=== PATIENT | male | born 1935 | race Caucasian/White ===

== ENCOUNTER 2023-07-16 08:12 | Outpatient (CLI) | payer MEDICARE, OTHER, SELFPAY | END 2023-07-16 08:13 | disposition home or self-care (01) | LOC: AMB 08-05 15:05 | PROVIDERS: Visit Provider Family Medicine | DX: R07.89 Other chest pain (principal) | CPT/HCPCS: A0425; A0427 ==

== ENCOUNTER 2024-07-13 08:03 | Outpatient (CLI) | payer MEDICARE, OTHER, SELFPAY ==
--- OUTSIDE RECORDS SUMMARY | 2024-07-28 03:52 | XMS_ITS | Clinical Summary ---
Author Organization [facility] Address [address] [place] [address] Care Team Providers Care Habilitation Worker Name Role Phone Dionte Ferraro MD Primary Care Provider [phone]- [phone] Source Comments You are receiving this document as you are listed as the primary care provider,follow-up provider, or the patient has been referred to you for consultation.This is in compliance with the Medicare and[facility] EHR Incentive Program,which states Providers who transition their patient to another setting of careor provider of care or refers their patient to another provider of care shouldprovide summary care record for each transition of care or referral. [facility] Allergies No known active allergies Medications Medication Sig Dispensed Refills Start Date End Date Status aspirin, enteric-coated 81 MG enteric coated tablet Take 1 Tablet (81 mg) by mouth daily. Active Jefferson-3 Fatty Acids (FISH OIL) 1200 MG CPDR daily. Active cyanocobalamin (VITAMIN B12) 1000 MCG tablet Take 1.5 Tablets (1,500 mcg) by mouth daily. Active Cholecalciferol (VITAMIN D3) 50 MCG (2000 UT) TABS daily. Active Alcohol Swabs (ALCOHOL PADS) 70 % PADSIndications:Cont rolled type 2 diabetes mellitus with stage 3 chronic kidney disease, 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) Take 1 Each as instructed every other day. 100 Each 10/25/2020 Active polyethylene glycol (MIRALAX) 17 g packet Take 17 g by mouth every 24 hours as needed. 07/27/2023 Active bisacodyl (DULCOLAX) 10 MG suppository Insert 1 Suppository (10 mg) rectally every 24 hours as needed. 07/27/2023 Active methocarbamol (ROBAXIN) 750 MG tablet Take 2 Tablets (1,500 mg) by mouth 4 times daily as needed. 07/27/2023 Active gabapentin (NEURONTIN) 100 MG capsule Take 1 Capsule (100 mg) by mouth. 07/27/2023 Active dextromethorphan-gua ifenesin (ROBITUSSIN-DM) 10-100 MG/5ML syrup Take 10 mL by mouth every 4 hours as needed. 07/27/2023 Active acetaminophen 500 MG tablet Take 2 Tablets (1,000 mg) by mouth. 07/27/2023 Active benzonatate (TESSALON) 100 MG capsule Take 1 Capsule (100 mg) by mouth every 4 hours as needed. 07/27/2023 Active ONE TOUCH ULTRA 2 meterIndications:Typ e 2 diabetes mellitus with stage 3b chronic kidney disease, 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) Use to test daily. Use as directed. Pharmacy dispense brand based on insurance. 1 Each 08/03/2023 Active blood glucose (FREESTYLE LITE) test stripIndications:Con trolled type 2 diabetes mellitus with stage 3 chronic kidney disease, 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) Use 1 Each to test daily. 100 Strip 3 09/18/2023 Active lancets (ACCU-CHEK SOFTCLIX)Indications :Type 2 diabetes mellitus with stage 3b chronic kidney disease, 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) Use 1 Each to test daily. E11.22, N18.32 100 Each 3 03/13/2024 Active sodium bicarbonate 650 MG tabletIndications:Me tabolic acidosis,Stage 3b chronic kidney disease (HRC) Take 2 Tablets (1,300 mg) by mouth two times a day. 360 Tablet 3 06/08/2024 Active calcitriol (ROCALTROL) 0.25 MCG capsule Take 1 Capsule (0.25 mcg) by mouth daily. 90 Capsule 3 06/08/2024 Active allopurinol (ZYLOPRIM) 100 MG tabletIndications:Hy peruricemia Take 1 Tablet (100 mg) by mouth daily. 90 Tablet 3 06/20/2024 Active amLODIPine (NORVASC) 10 MG tabletIndications:Es sential hypertension (HRC) Take 1 Tablet (10 mg) by mouth daily. 90 Tablet 3 06/20/2024 Active finasteride (PROSCAR) 5 MG tabletIndications:BP H with obstruction/lower urinary tract symptoms Take 1 Tablet (5 mg) by mouth daily. 90 Tablet 3 06/20/2024 Active ramipril (ALTACE) 10 MG capsuleIndications:T ype 2 diabetes mellitus with stage 3b chronic kidney disease, 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),Essential hypertension (HRC) Take 1 Capsule (10 mg) by mouth two times a day. 180 Capsule 3 06/20/2024 Active atorvastatin (LIPITOR) 40 MG tabletIndications:Mi xed hyperlipidemia (HRC) Take 1 Tablet (40 mg) by mouth daily. 90 Tablet 3 06/20/2024 Active carvedilol (COREG) 6.25 MG tabletIndications:Es sential hypertension (HRC) Take 1 Tablet (6.25 mg) by mouth two times a day with meals. 180 Tablet 06/20/2024 Active empagliflozin (JARDIANCE) 10 MG tabletIndications:Ty pe 2 diabetes mellitus with stage 3b chronic kidney disease, 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),Stage 3b chronic kidney disease (HRC),Essential hypertension (HRC) Take 1 Tablet (10 mg) by mouth daily. 90 Tablet 3 06/20/2024 Active hydrALAZINE (APRESOLINE) 50 MG tabletIndications:Es sential hypertension (HRC) Take 1.5 Tablets (75 mg) by mouth three times a day. 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 08/15/2020 Essential hypertension 08/15/2020 Mixed hyperlipidemia 08/15/2020 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 Hyperuricemia 08/15/2020 S/P AVR 08/15/2020 DNR (do not resuscitate) 08/15/2020 History of CVA with residual deficit 08/15/2020 Overview (08/15/2020): Dysarthria/balance Presence of prosthetic heart valve 08/15/2020 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 20 Overview (04/02/2023): Dysarthria/balance Resolved Problems Problem Noted Date Diagnosed Date Resolved Date Cerebrovascular accident (CV A) due to thrombosis of left middle cerebral artery 08/15/2020 08/15/2020 Parkinson's disease 08/15/2020 08/16/20 20 Encounters Date Type Department Care Team Description 06/20/2024 3:00 PM CDT Lab Visit [facility] [address] [place] [address] Type 2 diabetes mellitus with stage 3b chronic kidney disease, 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); Hyperuricemia; Mixed hyperlipidemia 06/20/2024 10:30 AM CDT Office Visit [facility] [id number] [place] [address] Dionte Ferraro MD Encounter for Medicare annual wellness exam (Primary Dx); Type 2 diabetes mellitus with stage 3b chronic kidney disease, 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); Stage 3b chronic kidney disease (HRC); Essential hypertension (HRC); Mixed hyperlipidemia; BPH with obstruction/lower urinary tract symptoms; Hyperuricemia; Weakness of both lower extremities; Chronic bilateral low back pain without sciatica 06/14/2024 E-Visit [facility] [id number] [place] [address] Mirta Santillan, ORGAN RECOVERY COORDINATOR, HELP DESK SUPPORT 06/08/2024 3:50 PM CDT Lab Visit [facility] [address] [place] [address] Metabolic acidosis; Stage 3b chronic kidney disease (HRC) 06/08/2024 3:00 PM CDT Office Visit [facility] [address] [place] [address] Mirta Santillan APRN, CNP Stage 3b chronic kidney disease (HRC) (Primary Dx); Metabolic acidosis; Type 2 diabetes mellitus with stage 3b chronic kidney disease, 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); 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 (HRC); Essential hypertension (C) 06/05/[address] [address] Dionte Ferraro MD Refill (ramipril (ALTACE) 10 MG capsule [Pharmacy Med Name: RAMIPRIL CAPS 10MG]) 05/15/[address] [address] Dionte Ferraro MD Reschedule Appointment 05/02/[address] [address] Dionte Ferraro MD Refill (amLODIPine (NORVASC) 10 MG tablet [Pharmacy Med Name: AMLODIPINE BESYLATE TABS 10MG]) from Last 3 Months Immunizations Name Administration Dates Next Due Flu Vac Preserv Free (3+yrs) 08/08/2016 Influenza IIV4 (Quadrivalent ) Fluad, 65+ Yrs 08/03/2023,09/25/2022,11/07/2021,2019 Influenza aIIV3 65+ Years (Fluad) 08/16/2013 Influenza, Unspecified Formulation 07/24,08/08/2017,09/08/2015,2013,08/08/2013,09/23/2011,08/08/2011,0 08/07/2010,07/09/2010,08/27/2009, 008,09/07/2007,09/08/2006 Moderna Monovalent 12+ 05/21/2022,2020,12/24/2020,2020 PCV13 (Prevnar) 11/08/2013 PCV20 (Tkmoxrc93) 04/13/2022 PPSV23 (Pneumovax) 08/16/2013 Pfizer Bivalent 12+ 09/25/2022 Pfizer COVID-19 12+ 09/22/2023 Pneumococcal, Unspecified Formulation 08/08/2010 ,07/09/2010,12/03/2003 Td (7+ yrs) 02/07/2012,11/08/2007 Tdap 09/22/2023,09/23/2011 Zoster (Zostavax) 06/08/2013,11/14/2008 Family History Medical History Relation Name Comments Cataract Other daughter Relation Name Status Comments Other daughter Alive Social History Tobacco Use Types Packs/Day Years Used Date Smoking Tobacco: Former Cigarettes 0.3 7 1 - 08/15/1980 Smokeless Tobacco: Never Tobacco Cessation:Counseling Given: Not Answered Alcohol Use Standard Drinks/Week Comments Not Currently 0 (1 standard drink = 0.6 oz pur e alcohol) occasional PHQ-2 Answer Date Recorded PHQ-2 Score 0 06/20/2024 Sex and Gender Information Value Date Recorded Sex Assigned at Not on file Gender Identity Not on file Sexual Orientation Not on file Last Filed Vital Signs Vital Sign Reading Time Taken Comments Blood Pressure 149/57 06/20/2024 10:12 AM CDT Pt refused auto avg Pulse 58 06/20/2024 10:12 AM CDT Temperature - - Respiratory Rate 14 08/16/2020 10:5 4 AM CDT Oxygen Saturation 100% 08/19/2020 10: 05 AM CDT Inhaled Oxygen Concentration - - Weight 92.3 kg (203 lb 8 oz) 06/20/2024 10:12 AM CDT Height 170.8 cm (5' 7.25) 06/20/2024 1 0:12 AM CDT Body Mass Index 31.64 06/20/2024 10:12 AM CDT Plan of Treatment Health Maintenance Due Date Last Done Comments RSV (1 - 1-dose 75+ series) 2011 Zoster/Shingles (2 of 3) 08/03/2013 06/08/2013, 05/2009 COVID-19 Vaccine ( season) 2024 09/22/2023, 09/25/2022, 05/21/2022, Additional history exists Influenza (#1) 2024 08/03/2023, 09/08, 11/07/2021, Additional history exists Diabetes: HGBA1C 09/20/2024 06/20/2024, 06/2023, 07/16/2023, Additional history exists Diabetes: Eye Exam 05/08/2025 05/08/2024 (C ompleted), 11/26/2020 Diabetes: Creatinine 06/08/2025 06/08/2024, 01/15/2023, 06/05/2022, Additional history exists Diabetes: Foot Exam 06/20/2025 06/20/2024, Medicare Annual Wellness Visit 06/20/2025 06/20/2024, 04/02/2023, 11/17/2021, Additional history exists Diabetes: Lipid Panel 06/20/2029 06/20/2024 , 04/02/2023, 05/01/2022, Additional history exists DTaP/Tdap/Td (4 - Tdap) 09/22/2033 09/22/20 23, 02/07/2012, 09/23/2011, Additional history exists Pneumococcal 65+ Yrs Completed 04/13/2022, 11/08/2013, 08/16/2013, Additional history exists HepA Aged Out No longer eligi ble based on patient's age to complete this topic HepB Aged Out No longer eligi ble based on patient's age to complete this topic Hib Aged Out No longer eligi ble based on patient's age to complete this topic IPV (Polio) Aged Out No longer eligi ble based on patient's age to complete this topic MCV4 Aged Out No longer eligi ble based on patient's age to complete this topic Procedures Procedure Name Priority Date/Time Associated Diagnosis Comments URIC ACID Routine 06/20/2024 11:21 AM CDT Hyperuricemia LDL CHOLESTEROL, DIRECT MEASURED Routine 06/20/2024 11:21 AM CDT Mixed hyperlipidemia ALT (SGPT) Routine 06/20/2024 11:21 AM CDT Hyperuricemia HGB A1C Routine 06/20/2024 11:21 AM CDT Type 2 diabetes mellitus with stage 3b chronic kidney disease, 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) COMPLETE BLOOD COUNT-W/DIFF Routine 06/08/2024 3:35 PM CDT Metabolic acidosis Stage 3b chronic kidney disease (HRC) INTACT PTH Routine 06/08/2024 3:35 PM CDT Metabolic acidosis Stage 3b chronic kidney disease (HRC) CBC AND DIFFERENTIAL PANEL Routine 06/08/2024 3:35 PM CDT Metabolic acidosis Stage 3b chronic kidney disease (HRC) RENAL FUNCTION PANEL Routine 06/08/2024 3:35 PM CDT Metabolic acidosis Stage 3b chronic kidney disease (HRC) from Last 3 Months Results * LDL Cholesterol, Direct Measured (06/20/2024 11:21 AM CDT) Pathologist [facility] LDL, Direct 118 <=130 mg/dL 06/20/2024 4:58 PM T [facility] Blood Venipuncture / Unknown 06/20/2024 11:21 AM CDT 06/20/2024 11:21 AM CDT Dionte Ferraro MD LAB_1 [facility] [address] [place] [address] * (ABNORMAL) Hgb A1C (06/20/2024 11:21 AM CDT) Pathologist [facility] Hemoglobin A1C (Rapid) 6.5(H) <=5.6 % 06/20/2024 11:41 AM T [facility] Estimated Average Glucose (Calc) 140 < 117 mg/dL 06/20/2024 11:41 AM T [facility] Comment:Estimated average gl ucose (eAG) converts A1c into glucose units (mg/dL) and estimates average glucose over the past approximately 3 months. The eAG reference interval (<117 mg/dL) corresponds to an A1c of <5.7%. Blood Venipuncture / Unknown 06/20/2024 11:21 AM CDT 06/20/2024 11:21 AM CDT Narrative [facility] - 06/20/2024 11:41 AM CDT For patients not previously diagnosed with diabetes: 5.7-6.4%: Increased risk for diabetes 6.5% and greater: Diagnostic for diabetes For patients diagnosed with diabetes: <8.0%: Goal of therapy for ages 18-75 Clinicians may recommend a higher or lower goal for specific individuals. The test method used for this Hemoglobin A1c result can experience interference from elevated hemoglobin and other hemoglobin variants. In patients with results that do not correlate clinically, contact the lab for further direction. Dionte Ferraro MD LAB_1 Performing Organization Address [facility] de Phone Number [address] * Uric Acid (06/20/2024 11:21 AM CDT) Uric Acid 5.8 3.5 - 7.2 mg/dL 06/20/2024 4:58 PM CDT [facility] Blood Venipuncture / Unknown 06/20/2024 11:21 AM CDT 06/20/2024 11:21 AM CDT Dionte Ferraro MD LAB_1 Performing Organization Address [facility] Co de Phone Number [facility] [address] * ALT (SGPT) (06/20/2024 11:21 AM CDT) ALT (SGPT) 13 <=55 U/L 06/20/2024 4:58 PM CDT [facility] Blood Venipuncture / Unknown 06/20/2024 11:21 AM CDT 06/20/2024 11:21 AM CDT Dionte Ferraro MD LAB_1 [facility] [address] [place] [address] * (ABNORMAL) Renal Function Panel (06/08/2024 3:35 PM CDT) Sodium 143 136 - 145 mmol/L 06/08/2024 6:15 PM [facility] Potassium 4.5 3.5 - 5.1 mmol/L 06/08/2024 6:15 PM [facility] Chloride 110(H) 98 - 109 mmol/L 06/08/2024 6:15 PM [facility] CO2 20 20 - 29 mmol/L 06/08/2024 6:15 PM [facility] Anion Gap 13 6 - 16 mmol/L 06/08/2024 6:15 PM [facility] Calcium 10.4 8.4 - 10.4 mg/dL 06/08/2024 6:15 PM [facility] BUN 29(H) 7 - 26 mg/dL 06/08/2024 6:15 PM [facility] Creatinine 1.89(H) 0.73 - 1.18 mg/dL 06/08/2024 6:15 PM [facility] Albumin 3.8 3.5 - 5.0 g/dL 06/08/2024 6:15 PM [facility] Phosphorus 2.9 2.3 - 4.7 mg/dL 06/08/2024 6:15 PM [facility] Glucose 137(H) 70 - 100 mg/dL 06/08/2024 6:15 PM [facility] Comment:The given reference range is for the fasting state. Non-fasting reference range for glucose is 70 - 180 mg/dL. GFR, Estimated 34(L) >60 mL/min/1.7 3m2 06/08/2024 6:15 PM [facility] Hours Fasting 0.0 8 - 12 Hours 06/08/2024 6:15 PM [facility] Comment:Patient has indicate d a non-fasting status. Blood Venipuncture / Unknown 06/08/2024 3:35 PM CDT 06/08/2024 3:35 PM CDT Mirta Santillan APRN, CNP LAB_1 [facility] [address] [place] [address] * (ABNORMAL) Intact PTH (06/08/2024 3:35 PM CDT) Pathologist [facility] Intact PTH 268(H) 10 - 100 pg/mL 06/08/2024 8:03 PM CDT [facility] Blood Venipuncture / Unknown 06/08/2024 3:35 PM CDT 06/08/2024 3:35 PM CDT Mirta Santillan APRN, CNP LAB_1 Performing Organization Address [facility]/ZIP Co de Phone Number [facility] [address] * (ABNORMAL) Complete Blood Count-W/Diff (06/08/2024 3:35 PM CDT) [facility] WBC 8.7 3.5 - 10.5 x10(9)/L 06/08/2024 3:46 PM CDT [facility] RBC 4.73 4.32 - 5.72 x10(12)/L 06/08/2024 3:46 PM CDT [facility] Hemoglobin 15.1 13.5 - 17.5 g/dL 06/08/2024 3:46 PM T [facility] HCT 45.8 38.8 - 50.0 % 06/08/2024 3:46 PM T [facility] MCV 96.8 80.0 - 100.0 fL 06/08/2024 3:46 PM T [facility] MCH 31.9 27.6 - 33.3 pg 06/08/2024 3:46 PM T [facility] MCHC 33.0 31.5 - 35.2 g/dL 06/08/2024 3:46 PM T [facility] RDW 14.4 11.9 - 15.5 % 06/08/2024 3:46 PM T [facility] Platelets 114(L) 150 - 450 x10(9)/L 06/08/2024 3:46 PM CDT [facility] Automated NRBC 0 <=0 /100 WBC 06/08/2024 3:46 PM CDT [facility] Neutrophil Absolute 6.0 1.7 - 7.0 10(9)/L 06/08/2024 3:46 PM CDT [facility] Lymphocyte Absolute 1.6 1.0 - 4.8 10(9)/L 06/08/2024 3:46 PM CDT [facility] Monocyte Absolute 0.6 0.2 - 0.9 10(9)/L 06/08/2024 3:46 PM CDT [facility] Eosinophil Absolute 0.5 0.0 - 0.5 10(9)/L 06/08/2024 3:46 PM CDT [facility] Basophil Absolute 0.0 0.0 - 0.3 10(9)/L 06/08/2024 3:46 PM CDT [facility] Immature Granulocyte % 0.2 0.0 - 0.5 % 06/08/2024 3:46 PM CDT [facility] Blood Venipuncture / Unknown 06/08/2024 3:35 PM CDT 06/08/2024 3:35 PM CDT Mirta Santilaln APRN, CNP LAB_1 [facility] [address] [place] [address], [facility] from Last 3 Months Advance Directives Documents on File Type Date Recorded Patient Biomedical Instrument Technician Expl anation HEALTHCARE DIRECTIVE 11/19/2020 06/07/20 12 HEALTHCARE DIRECTIVE 11/19/2020 0 HEALTHCARE DIRECTIVE 11/19/2020 007 Care Teams Habilitation Worker Relationship Specialty Start [place] [address] [address] [place] [address] PCP - General Family Practice 04/02/23
--- OUTSIDE RECORDS SUMMARY | 2024-07-28 03:52 | XMS_ITS | Encounter Summary ---
Author Organization [employer] [facility] Address [address] [place] [address] Care Team Providers Care Metalsmith Helper Name Role Phone Dionte Ferraro MD Primary Care Provider [phone]- [phone] Reason for Visit * Reason Comments Refill amLODIPine (NORVASC) 10 MG tablet [Pharmacy Med Name: AMLODIPINE BESYLATE TABS 10MG] Encounter Details Date Type Department Care Team (Late st Contact Info) Description 05/02/2024 Refill [facility] [id number] [place] [address] Dionte Ferraro MD [address] [place] [phone] Refill (amLODIPine (NORVASC) 10 MG tablet [Pharmacy Med Name: AMLODIPINE BESYLATE TABS 10MG]) Social History Tobacco Use Types Packs/Day Years Used Date Smoking Tobacco: Former Cigarettes 0.3 7 1 - 08/15/1980 Smokeless Tobacco: Never Alcohol Use Standard Drinks/Week Comments Not Currently 0 (1 standard drink = 0.6 oz pur e alcohol) occasional PHQ-2 Answer Date Recorded PHQ-2 Score 0 04/02/2023 Sex and Gender Information Value Date Recorded Sex Assigned at Not on file Gender Identity Not on file Sexual Orientation Not on file documented as of this encounter Nursing Notes * Mare Granger E - 05/05/2024 9:14 AM CDT Medication Refill - Due for Visit Medication still pending for clinician review, patient is due to be seen in the next 30 days. Called patient, was: Successful in reaching patient: We recently received a refill request for one of your medications. To continue managing your medication refills, your clinician would like to see you for a(n): Patient is due for: Video/Office Visit Patient scheduled appointment on: Future Appointments Provider Department Center 05/29/2024 3:30 PM (Arrive by 3:15 PM) Dionte Ferraro MD [facility] [place] Do you have enough medication to last until you appointment? No I will send a request to see if a temporary refill can be provided until your next appointment. Please check with your pharmacy on the status of your refill. We will notify you if it has not been approved. Frontline Action: Route to clinician identified in nursing documentation below. Clinician Action: Patient scheduled, requests refill. Recommend using ???Rx Final??? quick action to address request. * Cris Archibald, RN - 05/05/2024 8:40 AM CDT Further Assistance Needed on Refill from Hotel Reservationist Patient is due for Qualifying Visit Medication is still pending. Patient is due for a Office/Video Visit in the next 30 days.. Call Patient and document using .MRABELDUE. After attempting to schedule patient: If appointment is scheduled within 60 days: Please route to: Refill pool If unable to schedule appointment or scheduled greater than 60 days: Please route to: Dionte Ferraro MD Requested Prescriptions Pending Prescriptions Disp Refills amLODIPine (NORVASC) 10 MG tablet [Pharmacy Med Name: AMLODIPINE BESYLATE TABS 10MG] 90 Tablet 0 Sig: take 1 tablet daily * Bertha Wahl Xrwcomm - 05/02/2024 2:27 AM CDT amLODIPine (NORVASC) 10 MG tablet [Pharmacy Med Name: AMLODIPINE BESYLATE TABS 10MG] Medication started: 08/15/2020 Last ordered by DIONTE FERRARO N: 02/01/2024 (91 days ago) QTY: 90, Refills: 0, Sig: take 1 tablet daily (unchanged) -> An office visit is overdue (performed over 13 months ago, required every 12 months). Last qualifying visit: 04/02/2023 (with DIONTE FERRARO) (A more recent visit (in Family Practice with CATARINO HOLDER) was found) Next scheduled visit: None [email or web address] Emb[employer]ded Refills, Reference: [id number], 05/02/2024 2:27:17 AM CDT, Darrian ELIAS Refill Centralized Services - Primary Care [[id number]] ([id number]) documented in this encounter Plan of Treatment Not on file documented as of this encounter Visit Diagnoses Diagnosis Essential hypertension (HRC) Unspecified essential hypertension documented in this encounter Care Teams Metalsmith Helper Relationship Specialty Start [place] [address] [place] [address] PCP - General Family Practice 04/02/23 documented as of this encounter
--- OUTSIDE RECORDS SUMMARY | 2024-07-28 03:52 | XMS_ITS | Encounter Summary ---
Author Organization [employer] Address [address] [place] [address] Care Team Providers Care Nuclear Medical Technologist Name Role Phone Dionte Ferraor MD Primary Care Provider [phone]- [phone] Reason for Visit * Reason Comments Refill allopurinol (ZYLOPRI M) 100 MG tablet [Pharmacy Med Name: ALLOPURINOL TABS 100MG] Encounter Details Date Type Department Care Team (Late st Contact Info) Description 04/25/2024 Refill [facility] [address] [place] [address] [place] [id number] [place] [address] [phone] Refill (allopurinol (ZYLOPRIM) 100 MG tablet [Pharmacy Med Name: ALLOPURINOL TABS 100MG]) Social History Tobacco Use Types Packs/Day Years [...] as of this encounter Nursing Notes * Vane Lauren RN - 04/25/2024 7:46 AM CDT Renewed medication per medication refill standing order. Requested Prescriptions Signed Prescriptions Disp Refills allopurinol (ZYLOPRIM) 100 MG tablet 90 Tablet 0 Sig: take 1 tablet daily Authorizing Provider: DIONTE FERRARO Ordering User: VANE LAUREN * ShaneranchoJavier reinaprudencesasha Xrwcomm - 04/25/2024 2:23 AM CDT allopurinol (ZYLOPRIM) 100 MG tablet [Pharmacy Med Name: ALLOPURINOL TABS 100MG] Medication started: 08/15/2020 Last ordered by DIONTE FERRARO N: 01/26/2024 (90 days ago) QTY: 90, Refills: 0, Sig: take 1 tablet daily (unchanged) -> An office visit is overdue (performed 13 months ago, required every 12 months). -> Uric Acid is overdue (performed 13 months ago, required every 12 months) -> Refill x 1 month (courtesy refill. overdue for an office visit and Uric Acid check) Last qualifying visit: 04/02/2023 (with DIONTE FERRARO) (A more recent visit (in Family Practice with CATARINO HOLDER) was found) Next scheduled visit: None Uric Acid: 6.2 mg/dL on 04/02/2023 [facility] Embedded Refills, Reference: [id number], 04/25/2024 2:22:59 AM JAIMETChoco: CURT Refill Centralized Services - Primary Care [[id number]] ([id number]) * Bertha Wahl - 04/25/2024 2:23 AM CDT The following lab order(s) may be associated with the following Patient Result Comment (Entered by Dionte Ferraro MD at 04/07/2023 12:22 PM): URIC ACID Normal results. documented in this encounter Plan of Treatment Not on file documented as of this encounter Visit Diagnoses Diagnosis Hyperuricemia Other abnormal blood chemistry documented in this encounter Care Teams Nuclear Medical Technologist Relationship Specialty [place] [address] [place] [address] PCP - General Family Practice 04/02/23 documented as of this encounter
--- OUTSIDE RECORDS SUMMARY | 2024-07-28 03:52 | XMS_ITS | Encounter Summary ---
Author Organization [employer] Address [address] [place] [address] Care Team Providers Care Certified Alcohol And Drug Counselor Name Role Phone Dionte Ferraro MD Primary Care Provider [phone]- [phone] Reason for Visit * Reason Comments Reschedule Appointment Encounter Details Date Type Department Care Team (Late st Contact Info) Description 05/15/2024 Telephone [facility] [address] [place], [place] [phone] [place] [address] [place], [place] [phone] Reschedule Appointment Social History Tobacco Use Types Packs/Day Years [...] as of this encounter Nursing Notes * Richardson Solis - 05/15/2024 9:59 AM CDT Called ands spoke to patient. Was able to help move appointment to another date due to Provider Outof Office. Patient had no further questions. documented in this encounter Plan of Treatment Not on file documented as of this encounter Visit Diagnoses Not on filedocumented in this encounter Care Teams Certified Alcohol And Drug Counselor Relationship Specialty [place] [address] [place] [address] PCP - General Family Practice 04/02/23 documented as of this encounter
--- OUTSIDE RECORDS SUMMARY | 2024-07-28 03:52 | XMS_ITS | Encounter Summary ---
Author Organization [employer] Address [address] [place] [address] Care Team Providers Care Washtub Worker Name Role Phone Dionte Ferraro MD Primary Care Provider [phone]- [phone] Reason for Referral * Procedure/Equipment (Routine) - New Request Specialty Diagnoses / Procedures Referred By Dennise goodwin Referred To Contact Physical Therapy Diagnoses Weakness of both lower extremities Chronic bilateral low [place] [address] [place] [address] Pt Clinic [address] [facility] [place] [address] Referral ID Status Reason Start Date Expiration Date V isits Requested Visits Authorized [id number] New Request 06/20/2024 06/20/2025 1 1 Scheduling Instructions If scheduling assistance is needed, please inquire with the medical office staff upon exiting your appointment or contact the ordering clinic for recommended locations. This recommended service/s may not be covered by your insurance coverage. To find out your specific benefit coverage, please call the number on your insurance card. Question Answer Appointment Urgency? 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); Stage 3b chronic kidney disease (HRC); Essential hypertension (HRC); Mixed hyperlipidemia; BPH with obstruction/lower urinary tract symptoms; Hyperuricemia; Weakness of both lower extremities; Chronic bilateral low back pain without sciatica Social History Tobacco Use Types Packs/Day Years [...] on file documented as of this encounter Last Filed Vital Signs Vital Sign Reading Time Taken Comments Blood Pressure 149/57 06/20/2024 10:12 AM CDT Pt refused auto avg Pulse 58 06/20/2024 10:12 AM CDT Temperature - - Respiratory Rate - - Oxygen Saturation - - Inhaled Oxygen Concentration - - Weight 92.3 kg (203 lb 8 oz) 06/20/2024 10:12 AM CDT Height 170.8 cm (5' 7.25) 06/20/2024 1 0:12 AM CDT Body Mass Index 31.64 06/20/2024 10:12 AM CDT documented in this encounter Patient Instructions * Patient Instructions* Dionte Ferraro MD - 06/20/2024 10:30 AM CDT Healthy Weight Matters Understanding body mass index Your BMI is on your After Visit Summary under ???Today???s Visit.?? You can also find a BMI calculator on the National Hardy of Health website at www.nhlbi.nih.gov/health/educational/lose_wt/BMI/bmicalc.htm. BMI ranges for adults BMI BMI categories Below 18.5 Underweight 18.5 to 24.9 Normal weight 25.0 to 29.9 Overweight 30.0 and above Obese If you are overweight or have obesity, your risk increases for developing health problems, such as type 2 diabetes, heart disease, high blood pressure and stroke. Your BMI measurement alone cannot predict your health risk. But if you know your BMI is high, you can take steps to set healthy goals and improve your overall well-being. What can I do to improve my BMI? Losing weight is an important way to reduce your BMI and improve your overall health and well- being. Start small. Aim to lose a few pounds to begin rather than worry about your ideal weight. Here are some tips: + Be physically active. Do activities that you enjoy, give you energy and are safe for you to do.Gradually build up the intensity (how hard your body is working) of activity. Long-term, aim for 30 minutes or more of activity most days of the week. Remember to check with your doctor before starting any physical activity program. + Eat real (not processed) food. Eat mostly vegetables, fruit, whole grains and lean proteins. Thatway, you--not food manufacturers--control the ingredients that go into your meals. + Aim for 5 servings of fruits and vegetables a day. Choose a variety of vegetables with different colors. Have fresh fruit for dessert. Limit deep-fried vegetables, such as macedonian fries. + Choose lean protein, such as chicken or fish. Try non-meat sources of protein such as beans, soy and other legumes. + Choose whole grains. Whole grain foods, such as whole-wheat bread, brown rice, barley, quinoa andoatmeal, contain the entire grain kernel and are better for your health. Limit refined grains, suchas white bread and rice. + Satisfy hunger with unsaturated fat. Fat helps you feel satisfied. Choose unsaturated fats, such as canola or olive oils, nuts and seeds, oil-based dressings and avocados. Limit saturated fats, which are found in animal products and some plant oils, such as coconut and palm oils. + Pay attention to portion sizes. Use smaller plates, bowls and glasses. Portion out foods before you eat. + Drink water or unsweetened beverages. Avoid soda, sweetened coffees and teas, energy drinks and sports drinks, which are full of added sugar that your body does not need. Water is always the best option. + Eat mindfully. Take time to fully enjoy your food and pay attention to what you are eating. Make meals last 15 to 30 minutes. This gives your body a chance to become satisfied and tell your brain to stop eating. Pay attention to what you are eating, rather than doing other activities such as watching TV or driving. This helps you pay attention to your body???s signals of hunger and fullness. + Share meals when eating at restaurants, or put half of the entr??e in a to-go container before you start eating. Nutrition Services One-on-one visits with a registered dietitian are available at various clinic locations to help youdevelop a personalized plan for managing your weight. We also offer classes led by dietitians on a variety of topics. To schedule an appointment, find the clinic that works best for you. + For [facility], call [phone]. + For [facility], call [phone]. + For [facility] and [facility], call [phone]. + For [facility] and [facility], call [phone]. + For [facility], call [phone]. (03/2019) ??[facility] Annual Wellness Visit Summary Your care team is recommending the following tests, procedures or services. Some of these recommendations may not be fully covered by Medicare or your insurance. If you have questions, check with your insurance to determine coverage before completing these services. Health Maintenance Due Health Maintenance Due Topic Date Due ??? Zoster/Shingles (2 of 3) 08/03/2013 ??? Diabetes: Eye Exam 11/26/2021 ??? Diabetes: HGBA1C 10/15/2023 ??? COVID-19 Vaccine ( season) 2024 ??? Diabetes: Foot Exam 04/02/2024 If your Medicare Welcome or Annual Wellness Visit is showing you are due in the above list, this will be updated after this visit. You had this completed today and are not due for another year. Thank you for coming in for your Medicare Wellness Visit. To make sure we are doing our best to meet your care needs, here are a few important reminders. We want to know your thoughts as we work together to create your care plan, including stopping and starting medications. When we work together on next steps, it's called shared decision making. If there is anything else you would like to discuss, please reach out or schedule a follow-up appointmentif needed. We are here to listen. We want to help you address any concerns you have about the cost of your medications. To find options for the most cost-effective medications near you, go to https://www.[employer]/hp/pharmacy/drug-cost/index.html You can also find more information in this handout. Health care can be complicated. Sometimes, it can help to share your health information with your family or caregivers. (Caregivers can be friends as well as family.) How much you share is up to you.Here is a helpful link: https://www.[employer]/blog/fqppxj-hjmn-vivth-benefits/ We care about nutrition, how much physical activity you get and how much stress, worry or sadness you have in your life. Please reach out to your care team if you have additional information to shareor would like more resources or support. documented in this encounter Progress Notes * Dionte Ferraro MD - 06/20/2024 10:30 AM CDT Medicare Annual Wellness Visit Subjective/Historical: Momo Shay is a 88 y.o. old male Chief Complaint Patient presents with Medicare Annual Wellness Diabetes MEDICATION CHECK Current concerns: 1) DM2 - Currently on Jardiance 10 mg daily (for CKD stage 3b as well). BS at goal at home. No new complications noted. Updated eye exam. 2) HTN / CKD stage 3b - taking amlodipine 10 mg daily, hydralazine 75 mg TID, Coreg 6.25 mg BID. Has worsening leg swelling over last 6-7 months. Seen by Nephrology and Cardiology recently. No dose changes made at that time. Quite limited in his mobility. Sleeps in recliner as he has chronic back issues that prevent him from getting out of bed even with reclining function. States he's able to getfeet above heart in chair. 3) HL - on statin without new muscle aches 4) Right hand numbness - across entire hand. Hx of carpal tunnel, doesn't wear brace. Rests weight on right elbow much of day. 5) Hyperuricemia - taking allopurinol. No recent gout flares The beneficiary has a mobility limitation that significantly impairs his/her ability to participatein one or more mobility-related activities of daily living (MRADLs) including toileting, feeding, dressing, grooming, and bathing in customary locations in the home; AND The mobility limitation cannot be sufficiently resolved by the use of an appropriately fitted cane or walker; AND Use of a electric wheelchair will significantly improve the beneficiary???s ability to participate in MRADLs and the beneficiary will use it on a regular basis in the home; AND The beneficiary has not expressed an unwillingness to use the electric wheelchair that is provided in the home; AND The beneficiary does not has sufficient upper extremity function and other physical and mental capabilities needed to safely self-propel a manual wheelchair Advance Directives: On File Observed Vitals: BP (!) 149/57 (BP Location: Right Arm, BP Cuff Size: Large) Comment: Pt refused auto avg Pulse (!) 58 Ht 5' 7.25 (1.708 m) Wt 203 lb 8 oz (92.3 kg) BMI 31.64 kg/m?? General: Alert and conversational, pleasant, in no acute distress HEENT: Head is atraumatic, normocephalic. Eyes are clear without conjunctival erythema or injection. PERRLA. EOMI. Nose is clear without drainage. Posterior pharynx is clear without erythema or exudate. Mucous membranes moist. TM clear b/l (wearing hearing aids) Neck: Soft, supple, full ROM. No thyromegaly. No lymphadenopathy. Heart: RRR without click, murmur, rub, or gallop. Lungs: CTAB without rales, rhonchi, or wheeze. Abdomen: Soft, non-tender : no inguinal hernia or LAD noted Skin: Clear without rash or suspicious lesions. Extremities: Grossly normal, atraumatic, no cyanosis or edema. Neuro: Numbness in right hand noted, reduced breadman strength in right hand. Psych: Appropriate mood and affect. Assessment/Plan Momo was seen today for medicare annual wellness, diabetes and medication check. 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 - empagliflozin (JARDIANCE) 10 MG tablet; Take 1 Tablet (10 mg) by mouth daily. - Diabetic Foot Check (Ep101) - Hgb A1C; Future Stage 3b chronic kidney disease (HRC) - empagliflozin (JARDIANCE) 10 MG tablet; Take 1 Tablet (10 mg) by mouth daily. Essential hypertension (HRC) - amLODIPine (NORVASC) 10 MG tablet; Take 1 Tablet (10 mg) by mouth daily. - ramipril (ALTACE) 10 MG capsule; Take 1 Capsule (10 mg) by mouth two times a day. - carvedilol (COREG) 6.25 MG tablet; Take 1 Tablet (6.25 mg) by mouth two times a day with meals. - empagliflozin (JARDIANCE) 10 MG tablet; Take 1 Tablet (10 mg) by mouth daily. - hydrALAZINE (APRESOLINE) 50 MG tablet; Take 1.5 Tablets (75 mg) by mouth three times a day. Mixed hyperlipidemia - atorvastatin (LIPITOR) 40 MG tablet; Take 1 Tablet (40 mg) by mouth daily. - LDL Cholesterol, Direct Measured; Future BPH with obstruction/lower urinary tract symptoms - finasteride (PROSCAR) 5 MG tablet; Take 1 Tablet (5 mg) by mouth daily. Hyperuricemia - allopurinol (ZYLOPRIM) 100 MG tablet; Take 1 Tablet (100 mg) by mouth daily. - ALT (SGPT); Future - Uric Acid; Future Weakness of both lower extremities - Wheelchair Seating Evaluation Chronic bilateral low back pain without sciatica - Wheelchair Seating Evaluation Can meet with PT for wheelchair evaluation for electric wheelchair if he so chooses. Declines DME order for hospital bed at this time (with electronic reclining function). Continue on current medications, but due to worsening leg swelling patient would like to inquire with Nephrology team if there are any options for replacing amlodipine with diuretic, though he is weighing the decision on whether he would like to have more incontinence instead of edema. Also discussed conservative management with finding a bed that would work for him to lay flat at night, compression stockings, reduced sodium diet. Must also monitor kidney function as well. Update labs as above. Counseling and education provided today includes proper nutrition and health habits, fall prevention, and for those items ordered above. See plan for future preventive services in Patient Instructions. Dionte Ferraro MD 06/20/2024, 10:23 AM documented in this encounter Plan of Treatment Scheduled Referrals Name Type Priority Associated Diagnoses Orde r Schedule Wheelchair Seating Evaluation Referral Routine Weakness of both lower extremities Chronic bilateral low back pain without sciatica Ordered: 06/20/2024 documented as of this encounter Results * Uric Acid (06/20/2024 11:21 AM CDT) Pathologist [facility] Uric Acid 5.8 3.5 - 7.2 mg/dL 06/20/2024 4:58 PM CDT [facility] Blood Venipuncture / Unknown 06/20/2024 11:21 AM CDT 06/20/2024 11:21 AM CDT Dionte Ferraro MD LAB_1 Performing Organization Address [facility] Co de Phone Number [address] * LDL Cholesterol, Direct Measured (06/20/2024 11:21 AM CDT) Pathologist [facility] LDL, Direct 118 <=130 mg/dL 06/20/2024 4:58 PM CDT [facility] Blood Venipuncture / Unknown 06/20/2024 11:21 AM CDT 06/20/2024 11:21 AM CDT Dionte Ferraro MD LAB_1 Performing Organization Address [facility] Co nh Phone Number [facility] [phone] [place] [address] * ALT (SGPT) (06/20/2024 11:21 AM CDT) Pathologist [facility] ALT (SGPT) 13 <=55 U/L 06/20/2024 4:58 PM T [facility] Blood Venipuncture / Unknown 06/20/2024 11:21 AM CDT 06/20/2024 11:21 AM CDT Dionte Ferraro MD LAB_1 Performing Organization Address [facility] de Phone Number [facility] [address] [phone] * (ABNORMAL) Hgb A1C (06/20/2024 11:21 AM CDT) [facility] Hemoglobin A1C (Rapid) 6.5(H) <=5.6 % 06/20/2024 11:41 AM CDT [facility] Estimated Average Glucose (Calc) 140 < 117 mg/dL 06/20/2024 11:41 AM T [facility] Comment:Estimated average gl ucose (eAG) converts A1c into glucose units (mg/dL) and estimates average glucose over the past approximately 3 months. The eAG reference interval (<117 mg/dL) corresponds to an A1c of <5.7%. 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) Stage 3b chronic kidney disease (HRC) Essential hypertension (HRC) Unspecified essential hypertension 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
--- OUTSIDE RECORDS SUMMARY | 2024-07-28 03:52 | XMS_ITS | Encounter Summary ---
Author Organization [facility] Address [address] [place] [address] Care Team Providers Care Livestock Nutrition Territory Manager Name Role Phone Dionte Ferraro MD Primary Care Provider +1- [phone] Reason for Visit * Reason Comments Refill ramipril (ALTACE) 10 MG capsule [Pharmacy Med Name: RAMIPRIL CAPS 10MG] Encounter Details Date Type Department Care Team (Late st Contact Info) Description 06/05/2024 Refill [facility] [address] [place] [address] Dionte Ferraro MD [address] [place] [phone] Refill (ramipril (ALTACE) 10 MG capsule [Pharmacy Med Name: RAMIPRIL CAPS 10MG]) Social History Tobacco Use Types Packs/Day [...] as of this encounter Nursing Notes * Gisella Ricketts RN - 06/05/2024 7:37 PM CDT Further Assistance Needed on Refill from Clinician RN reviewed. Pt is >15 months due for qualifying visit and/or lab. Pt has appt scheduled. > An office visit is overdue (performed over 14 months ago, required every 12 months). -> Cr and K are overdue (performed 17 months ago, required every 12 months) -> Cr is abnormal (1.7 mg/dL lies outside 0.73 mg/dL - 1.18 mg/dL) Last qualifying visit: 04/02/2023 (with DIONTE FERRARO) (A more recent visit (in Family Practice with CATARINO HOLDER) was found) Next scheduled visit: 06/12/2024 (with DIONTE FERRARO) Review pended order for accuracy and sign if appropriate and Close encounter Requested Prescriptions Pending Prescriptions Disp Refills ramipril (ALTACE) 10 MG capsule [Pharmacy Med Name: RAMIPRIL CAPS 10MG] 180 Capsule 0 Sig: TAKE 1 CAPSULE TWICE A DAY * Bertha Wahl Xrwcomm - 06/05/2024 2:48 AM CDT ramipril (ALTACE) 10 MG capsule [Pharmacy Med Name: RAMIPRIL CAPS 10MG] Medication started: 08/15/2020 Last ordered by DIONTE FERRARO N: 03/05/2024 (92 days ago) QTY: 180, Refills: 0, Sig: take 1 capsule twice a day (unchanged) -> An office visit is overdue (performed over 14 months ago, required every 12 months). -> Cr and K are overdue (performed 17 months ago, required every 12 months) -> Cr is abnormal (1.7 mg/dL lies outside 0.73 mg/dL - 1.18 mg/dL) Last qualifying visit: 04/02/2023 (with DIONTE FERRARO) (A more recent visit (in Family Practice with CATARINO HOLDER) was found) Next scheduled visit: 06/12/2024 (with DIONTE FERRARO) Cr: 1.7 mg/dL on 01/15/2023 K: 4.6 mEq/L on 01/15/2023 [facility] Embedded Refills, Reference: [id number], 06/05/2024 2:48:48 AM CDT, Pool: PN Refill Centralized Services - Primary Care [[id number]] ([id number]) documented in this encounter Plan of Treatment Not on file documented as of this encounter Visit Diagnoses Diagnosis Essential hypertension (HRC)- Primary Unspecified essential hypertension Type 2 diabetes mellitus with stage 3b chronic kidney disease, 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
--- OUTSIDE RECORDS SUMMARY | 2024-07-28 03:52 | XMS_ITS | Encounter Summary ---
Author Organization [employer] [facility] [email or web address] Address [address] [place] [address] Care Team Providers Care Retail Shift Supervisor Name Role Phone Dionte Ferraro MD Primary Care Provider +1- [phone] Encounter Details Date Type Department Care Team (Late st Contact Info) Description 06/08/2024 3:50 PM CDT Lab Visit [facility] [address] [place], [place] [phone] Metabolic acidosis; Stage 3b chronic kidney disease (HRC) Social History Tobacco Use Types Packs/Day Years [...] on file documented as of this encounter Plan of Treatment Not on file documented as of this encounter Procedures Procedure Name Priority Date/Time Associated Diagnosis Comments CBC AND DIFFERENTIAL PANEL Routine 06/08/2024 3:35 PM CDT Metabolic acidosis Stage 3b chronic kidney disease (HRC) RENAL FUNCTION PANEL Routine 06/08/2024 3:35 PM CDT Metabolic acidosis Stage 3b chronic kidney disease (HRC) INTACT PTH Routine 06/08/2024 3:35 PM CDT Metabolic acidosis Stage 3b chronic kidney disease (HRC) COMPLETE BLOOD COUNT-W/DIFF Routine 06/08/2024 3:35 PM CDT Metabolic acidosis Stage 3b chronic kidney disease (HRC) documented in this encounter Results * (ABNORMAL) Complete Blood Count-W/Diff (06/08/2024 3:35 PM CDT) WBC 8.7 3.5 - 10.5 x10(9)/L 06/08/2024 3:46 PM [facility] RBC 4.73 4.32 - 5.72 x10(12)/L 06/08/2024 3:46 PM [facility] Hemoglobin 15.1 13.5 - 17.5 g/dL 06/08/2024 3:46 PM [facility] HCT 45.8 38.8 - 50.0 % 06/08/2024 3:46 PM [facility] MCV 96.8 80.0 - 100.0 fL 06/08/2024 3:46 PM [facility] MCH 31.9 27.6 - 33.3 pg 06/08/2024 3:46 PM [facility] MCHC 33.0 31.5 - 35.2 g/dL 06/08/2024 3:46 PM [facility] RDW 14.4 11.9 - 15.5 % 06/08/2024 3:46 PM [facility] Platelets 114(L) 150 - 450 x10(9)/L 06/08/2024 3:46 PM [facility] Automated NRBC 0 <=0 /100 WBC 06/08/2024 3:46 PM [facility] Neutrophil Absolute 6.0 1.7 - 7.0 10(9)/L 06/08/2024 3:46 PM [facility] Lymphocyte Absolute 1.6 1.0 - 4.8 10(9)/L 06/08/2024 3:46 PM [facility] Monocyte Absolute 0.6 0.2 - 0.9 10(9)/L 06/08/2024 3:46 PM [facility] Eosinophil Absolute 0.5 0.0 - 0.5 10(9)/L 06/08/2024 3:46 PM CDT [facility] Basophil Absolute 0.0 0.0 - 0.3 10(9)/L 06/08/2024 3:46 PM CDT [facility] Immature Granulocyte % 0.2 0.0 - 0.5 % 06/08/2024 3:46 PM CDT [facility] Blood Venipuncture / Unknown 06/08/2024 3:35 PM CDT 06/08/2024 3:35 PM CDT Mirta Santillan APRN, CNP LAB_1 Performing Organization Address City/[facility]/ZIP Co de Phone Number [facility] [address] [place] [address] * (ABNORMAL) Intact PTH (06/08/2024 3:35 PM CDT) Pathologist [facility] Intact PTH 268(H) 10 - 100 pg/mL 06/08/2024 8:03 PM CDT [facility] Blood Venipuncture / Unknown 06/08/2024 3:35 PM CDT 06/08/2024 3:35 PM CDT Mirta Santillan APRN, CNP LAB_1 [facility] [address] * (ABNORMAL) Renal Function Panel (06/08/2024 3:35 PM CDT) Pathologist [facility] Sodium 143 136 - 145 mmol/L 06/08/2024 6:15 PM CDT [facility] Potassium 4.5 3.5 - 5.1 mmol/L 06/08/2024 6:15 PM T [facility] Chloride 110(H) 98 - 109 mmol/L 06/08/2024 6:15 PM CDT [facility] CO2 20 20 - 29 mmol/L 06/08/2024 6:15 PM CDT [facility] Anion Gap 13 6 - 16 mmol/L 06/08/2024 6:15 PM CDT [facility] Calcium 10.4 8.4 - 10.4 mg/dL 06/08/2024 6:15 PM [facility] BUN 29(H) 7 - 26 mg/dL 06/08/2024 6:15 PM [facility] Creatinine 1.89(H) 0.73 - 1.18 mg/dL 06/08/2024 6:15 PM [facility] Albumin 3.8 3.5 - 5.0 g/dL 06/08/2024 6:15 PM [facility] Phosphorus 2.9 2.3 - 4.7 mg/dL 06/08/2024 6:15 PM [facility] Glucose 137(H) 70 - 100 mg/dL 06/08/2024 6:15 PM [facility] Comment:The given reference range is for the fasting state. Non-fasting reference range for glucose is 70 - 180 mg/dL. GFR, Estimated 34(L) >60 mL/min/1.7 3m2 06/08/2024 6:15 PM [facility] Hours Fasting 0.0 8 - 12 Hours 06/08/2024 6:15 PM [facility] Comment:Patient has indicate d a non-fasting status. Blood Venipuncture / Unknown 06/08/2024 3:35 PM CDT 06/08/2024 3:35 PM CDT Mirta Santillan APRN, CNP LAB_1 Performing Organization Address City/State/[facility] Co de Phone Number [facility] [address] [place] [address] documented in this encounter Visit Diagnoses Diagnosis Metabolic acidosis Acidosis Stage 3b chronic kidney disease (HRC) documented in this encounter Care Teams Retail Shift Supervisor Relationship Specialty [place] [address] [address] [place] [address] PCP - General Family Practice 04/02/23 documented as of this encounter
--- OUTSIDE RECORDS SUMMARY | 2024-07-28 03:52 | XMS_ITS | Encounter Summary ---
Author Organization [facility] Address [address] [place] [address] Care Team Providers Care Firearms Specialist Name Role Phone Dionte Ferraro MD Primary Care Provider +- [phone] Encounter Details Date Type Department Care Team (Late st Contact Info) Description 06/14/2024 E-Visit [facility] [address] [place], [place] [phone] Mirta Santillan, TEXTILE BAG SEWER, BUYER AGENT [address] [facility] [address] [place] [address] Social History Tobacco Use Types Packs/Day Years [...] on filedocumented in this encounter Care Teams Firearms Specialist Relationship Specialty [place] [address] [place] [address] PCP - General Family Practice 04/02/23 documented as of this encounter
--- OUTSIDE RECORDS SUMMARY | 2024-07-28 03:52 | XMS_ITS | Encounter Summary ---
Author Organization [facility] [employer] Address [address] [place] [address] Care Team Providers Care Jukebox Route Driver Name Role Phone Dionte Ferraro MD Primary Care Provider +1- [phone] Reason for Visit * Reason Comments Follow-up Encounter Details Date Type Department Care Team (Late st Contact Info) Description 06/08/2024 3:00 PM CDT Office Visit [facility] [address] [place] [address] Mirta Santillan, SHIPPING CLERK, WIRE LATHER [address] [facility] [address] [place] [address] Stage 3b chronic kidney disease (HRC) (Primary Dx); Metabolic acidosis; Type 2 diabetes mellitus with stage 3b chronic kidney disease, 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); 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 Chronic kidney disease: Stage 3b likely 2/2 longstanding DM and HTN. Baseline creatinine is 1.9-2.1. Needs updated labs 2. Proteinuria: Continue ramipril 3. Hypertension: Controlled 4. Secondary hyperparathyroidism 5. Type 2 DM: most recent A1c of 6.6 % 6. BPH with hx of obstruction 7. CAD PLAN & RECOMMENDATIONS: Update labs today Follow-up in 1 year with labs CHIEF COMPLAINT: Follow up on CKD HISTORY OF PRESENT ILLNESS: Mr. Shay is a 88 y.o. male who was seen for follow up on above mentioned complaint. He has a history of type 2 DM, HTN, BPH with obstruction, hx of CVA. Was last seen by me in 01/2023. At that time we increased his calcitriol. He comes in today with his daughter. He really has no new complaints. He does have some swelling, but lungs are clear and he is concerned about his incontinence with diuretics. PAST MEDICAL HISTORY: Past medical history reviewed. Please see EMR for details. 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 REVIEW OF SYSTEMS: A 12 point ROS was obtained and is negative except as mentioned in HPI FAMILY HISTORY: Reviewed in EMR SOCIAL HISTORY: Reviewed in EMR ALLERGIES: Allergies reviewed. See EMR. No Known Allergies MEDICATIONS: Medication list reviewed and updated. Please see electronic medical record for details. VITALS: BP (!) 142/57 (BP Location: Left Arm, BP Cuff Size: Regular) Pulse 66 Wt 202 lb 9.6 oz (91.9 kg) BMI 31.50 kg/m?? PHYSICAL EXAM: GEN : Obese male in no distress . HEENT: PERRL, EOMI LUNGS: no increased work of breathing EXTREMITIES: no edema PSYCH: appropriate mood and affect NEURO: non focal LAB REVIEW: Labs were reviewed as marked. Please see EMR for details. Lab Results Component Value Date WBC 8.8 05/01/2022 Hemoglobin 15.0 01/15/2023 Platelets 120 (L) 05/01/2022 Sodium 142 01/15/2023 Chloride 112 (H) 01/15/2023 CO2 20 01/15/2023 BUN 29 (H) 01/15/2023 GFR, Estimated 39 (L) 01/15/2023 Phosphorus 2.7 01/15/2023 Calcium 9.9 01/15/2023 Albumin 3.5 01/15/2023 Glucose 200 (H) 01/15/2023 Vitamin D, 25-OH, Total 39 01/15/2023 documented in this encounter Plan of Treatment Scheduled Orders Name Type Priority Associated Diagnoses Orde r Schedule Renal Function Panel (Expected: 1 year) Lab Routine Stage 3b chronic kidney disease (HRC) Expected: 05/09/2025, Expires: 12/09/2025 Intact PTH (Expected: 1 year) Lab Routine Stage 3b chronic kidney disease (HRC) Expected: 05/09/2025, Expires: 12/09/2025 Hemoglobin, Blood (Expected: 1 year) Lab Routine Stage 3b chronic kidney disease (HRC) Expected: 05/09/2025, Expires: 12/09/2025 TP/Crea Ratio, Urine (Expected: 1 year) Lab Routine Stage 3b chronic kidney disease (HRC) Expected: 05/09/2025, Expires: 12/09/2025 documented as of this encounter Visit Diagnoses Diagnosis Stage 3b chronic kidney disease (HRC)- Primary Metabolic acidosis Acidosis Type 2 diabetes mellitus with stage 3b chronic kidney disease, 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
--- OUTSIDE RECORDS SUMMARY | 2024-07-28 03:52 | XMS_ITS | Encounter Summary ---
Author Organization [employer] Address [address] [place] [address] Care Team Providers Care Lubricating Machine Tender Name Role Phone Dionte Ferraro MD Primary Care Provider +1- [phone] Reason for Visit * Reason Comments Follow-up Encounter Details Date Type Department Care Team (Late st Contact Info) Description 04/24/2024 4:00 PM CDT Office Visit [facility] [address] [facility] [address] [place] [address] Noemí Arias, SCOTTY [address] [place] [address] Coronary artery disease of bypass graft of salamatof heart with stable angina pectoris (HRC) (Primary Dx); S/P AVR (aortic valve replacement); Stage 3b chronic kidney disease (HRC); Essential hypertension (HRC); Hx of CABG Social History Tobacco Use Types Packs/Day Years [...] Sign Reading Time Taken Comments Blood Pressure 138/60 04/24/2024 3:50 PM CDT Pulse 54 04/24/2024 3:50 PM CDT Temperature - - Respiratory Rate - - Oxygen Saturation - - Inhaled Oxygen Concentration - - Weight 92.8 kg (204 lb 9.6 oz) 04/24/2024 3:50 P M CDT Height 170.8 cm (5' 7.25) 04/24/2024 3:50 PM CD T Body Mass Index 31.81 04/24/2024 3:50 PM CDT documented in this encounter Patient Instructions * Patient Instructions* Noemí Arias PA-C - 04/24/2024 4:00 PM CDT Please continue current medications Continue with activity as tolerated Please continue to follow a low sodium (<2000 mg) diet Please weigh yourself daily. Call if weight increases 2 lb in one night or 5 lb in one week. Call if any worsening shortness of breath or increased swelling Schedule follow up with Nephrology Clinic follow up in 6 month's time If you have any questions or concerns, please don't hesitate to call Siobhan Rangel RN @ [phone]. documented in this encounter Progress Notes * Noemí Arias PA-C - 04/24/2024 4:00 PM CDT Cardiology Clinic Progress Note 04/24/2024 Momo Shay [id number] Primary Public Transit Specialist: Dr. Arenas SUBJECTIVE: Momo Shay is a pleasant 88 y.o. male who presents to clinic today for follow-up of follow up. He has a history of hyperlipidemia, BPH, stroke, CKD, aortic valve replacement, CAD s/p CABG and hypertension. He moved to [place] in 2019 after living in [place] for many years. He returns today doing okay. He denies any new cardiac concerns. Denies worsening dyspnea. He denies chest pains or palpitations. Trace LE edema. He does not do much exercise, uses his walker to helpwith ambulation. Home BP has been well controlled in the 130s/50-60s range. 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 Cardiac medications include: Amlodipine 10 mg daily ASA 81 mg daily Atorvastatin 40 mg daily Coreg 6.25 mg BID Hydralazine 75 mg TID Jardiance 10 mg daily Ramipril 10 mg BID Review of Systems: Complete review of systems was performed and was negative except as mentioned above. OBJECTIVE: BP 138/60 (BP Location: Left Arm, BP Cuff Size: Regular) Pulse (!) 54 Ht 5' 7.25 (170.8 cm) Wt 204 lb 9.6 oz (55380 g) BMI 31.81 kg/m?? Estimated body mass index is 31.81 kg/m?? as calculated from the following: Height as of this encounter: 5' 7.25 (170.8 cm). Weight as of this encounter: 204 lb 9.6 oz (64646 g). General Appearance: No apparent distress. Pleasant, converses appropriately. Neck: JVP not elevated. No submandibular or supraclavicular lymphadenopathy. No carotid bruits. Lungs: Clear to auscultation bilaterally, no wheezes or crackles Heart: Regular rate and rhythm, S1, S2 normal, II/ systolic murmur Extremities: Warm and with 1+ edema Neurologic: No focal deficits. Gait appears normal. Psychiatric: Affect is normal, patient is appropriate, grooming is appropriate. Labs: Lab Results Component Value Date Cholesterol 120 05/01/2022 HDL Cholesterol 31 (L) 05/01/2022 Triglyceride 169 (H) 05/01/2022 LDL, Direct 89 04/02/2023 Lab Results Component Value Date Creatinine 1.70 (H) 01/15/2023 ECHOCARDIOGRAM. Date: 09/28/2023 Start: 07:57 AM Facility: [facility] Analysis of regional left ventricular function reveals: apical, anteroapical and inferoapical akinesis is present. Left ventricular ejection fraction is visually estimated at 50%. S/P AVR 23 mm Lia Mitraflow 2012. The peak velocity across the aortic valve is 2.7 m/sec and the mean gradient is 17 mmHg. Status post mitral valve repair. The mean gradient across the mitral valve is 4 mmHg at pulse rate of 52 beats per minute. Trace mitral regurgitation. Compared to the prior study from 08/19/2020, the anteroapical wall motion abnormality is new. ASSESSMENT/PLAN: CAD, prior CABG in [place] (06/02/2013). Aortic stenosis s/p AVR. Had 23 mm Lai Mitraflow valve placed in [place] (06/02/13) CKD, stage 3. Follows with Nephrology Prior stroke T2DM, stable Hypertension T2DM Sinus bradycardia. --We reviewed recent symptoms and medications in detail. He is tolerating current regimen well. No changes were made today --We discussed importance of low sodium diet --Continue with activity as tolerated --Schedule follow up with Nephrology. Labs are pended for Nephrology --Plan for follow up in 6 month's time, sooner if any change in symptoms Noemí Arias PA-C Department of Cardiology documented in this encounter Plan of Treatment Not on file documented as of this encounter Visit Diagnoses Diagnosis Coronary artery disease of bypass graft of salamatof heart with stable angina pectoris (HRC)- Primary S/P AVR (aortic valve replacement) Heart valve replaced by other means Stage 3b chronic kidney disease (HRC) Essential hypertension (HRC) Unspecified essential hypertension Hx of CABG documented in this encounter Care Teams Lubricating Machine Tender Relationship Specialty [place] [address] [place] [address] PCP - General Family Practice 04/02/23 documented as of this encounter
--- OUTSIDE RECORDS SUMMARY | 2024-07-28 03:52 | XMS_ITS | Encounter Summary ---
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); Hyperuricemia; Mixed hyperlipidemia Social History Tobacco Use Types Packs/Day Years [...] Procedure Name Priority Date/Time Associated Diagnosis Comments LDL CHOLESTEROL, DIRECT MEASURED Routine 06/20/2024 11:21 AM CDT Mixed hyperlipidemia HGB A1C Routine 06/20/2024 11:21 AM CDT Type 2 diabetes mellitus with stage 3b chronic kidney disease, 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) URIC ACID Routine 06/20/2024 11:21 AM CDT Hyperuricemia ALT (SGPT) Routine 06/20/2024 11:21 AM CDT Hyperuricemia documented in this encounter Results * Uric Acid (06/20/2024 11:21 AM CDT) Uric Acid 5.8 3.5 - 7.2 mg/dL 06/20/2024 4:58 PM CDT [facility] Blood Venipuncture / Unknown 06/20/2024 11:21 AM CDT 06/20/2024 11:21 AM CDT Dionte Ferraro MD LAB_1 Performing Organization Address [facility] Phone Number [facility] [address] * LDL Cholesterol, Direct Measured (06/20/2024 11:21 AM CDT) LDL, Direct 118 <=130 mg/dL 06/20/2024 4:58 PM CDT [facility] Blood Venipuncture / Unknown 06/20/2024 11:21 AM CDT 06/20/2024 11:21 AM CDT Dionte Ferraro MD LAB_1 Performing Organization Address [facility] Phone Number [facility] [address] * ALT (SGPT) (06/20/2024 11:21 AM CDT) ALT (SGPT) 13 <=55 U/L 06/20/2024 4:58 PM CDT [facility] Blood Venipuncture / Unknown 06/20/2024 11:21 AM CDT 06/20/2024 11:21 AM CDT Dionte Ferraro MD LAB_1 Performing Organization Address [facility] [address] [facility]/ZIP Co de Phone Number [facility] [address] [place] [id number] * (ABNORMAL) Hgb A1C (06/20/2024 11:21 AM CDT) Hemoglobin A1C (Rapid) 6.5(H) <=5.6 % 06/20/2024 11:41 AM CDT [facility] Estimated Average Glucose (Calc) 140 < 117 mg/dL 06/20/2024 11:41 AM T [facility] Comment:Estimated average gl ucose (eAG) converts A1c into glucose units (mg/dL) and estimates average glucose over the past approximately 3 months. The eAG reference interval (<117 mg/dL) corresponds to an A1c of <5.7%. Blood Venipuncture / Unknown 06/20/2024 11:21 AM CDT 06/20/2024 11:21 AM CDT Narrative [facility] - 06/20/2024 11:41 AM CDT For [...] for further direction. 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
--- OUTSIDE RECORDS SUMMARY | 2024-07-28 03:53 | XMS_ITS | Encounter Summary ---
Author Name [facility] [place] [facility] [place] Address [address] [place] [address] Care Team Providers Care Flight Operations Specialist Name Role Phone YAZMIN HAGER Primary Care Provider Unavailabl e LUIS F CLEVELAND Primary Care Provider Unavailabl e Insurance Providers: All historical and current Section Date Range: From patient's date of to the date document was created. This section includes the names of all active insurance providers for the patient. Insurance Provider Type of Coverage Plan Name Start of Policy Coverage End of Policy Coverage Group Number Member ID Insurance Provider's Telephone Number Policy Perez's Name Patient's Relationship to Policy Perez MEDICARE ([facility]) MEDICARE () PART A Dec 09, 2001 PART A [id number] NOELLEKIRILL SHETH PATIENT MEDICARE (WN) MEDICARE () PART B Dec 09, 2001 PART B [id number] KACEY GalileaKIRILL PATIENT MEDICARE (WNR) MEDICARE (M) PART A Dec 09, 2001 PART A [id number] KACEY KIRILL Calero PATIENT MEDICARE (WNR) MEDICARE (M) PART B Dec 09, 2001 PART B [id number] NOELLEKIRILL SHETH PATIENT FOR LIFE [facility]ICA RE FOR LIFE Feb 05, 1999 WNR [id number] [phone] KIRILL JAMISON -FO R-LIFE [employer] RE FOR LIFE WNR Apr 11, 2015 FOR LIFE [id number] NOELLEKIRILL SHETH PATIENT Selected Encounter This section includes the information on record at [place] for the Encounter. Date/Time Encounter Type Encounter Description Reason Provider Source Nov 15, 2023 01:00 PM OFFICE O/P NEW MOD 45 MIN OPTOMETRY ICD-10-CM E11.9 Type 2 diabetes mellitus without complications SHANICEAL ALE[facility]ANDRINA [facility] Encounter Template Text not used by [place] Assessments - Encounter Diagnoses This section includes the primary and secondary diagnoses documented for the Encounter. Date/Time Primary/Secondary Diagnosis Diagnosis Name Provider Source Nov 15, 2023 02:51 PM PRIMARY Type 2 diabetes mellitus without complications AL PRASAD CARMELITACONY [facility] Nov 15, 2023 02:51 PM SECONDARY Nexdtve age-related mclr degn, left eye, early dry stage AL PRASAD CARMELITACONY [facility] Nov 15, 2023 02:51 PM SECONDARY Nexdtve age-related mclr degn, right eye, intermed dry stage AL PRASAD CARMELITACONY [facility] Nov 15, 2023 02:51 PM SECONDARY Presbyopia AL PRASAD CARMELITACONY [facility] Nov 15, 2023 02:51 PM SECONDARY Presence of intraocular lens AL PRASAD CARMELITACONY [facility] Nov 15, 2023 02:51 PM SECONDARY Trib rtnl vein occlusion, left eye, with macular edema AL PRASAD CARMELITACONY [facility] Plan of Treatment: Future Appointments (+ 6 months) and Future Tests (+/- 45 days) The Plan of Treatment section includes future care activities for the patient from all [place] treatmentfacilities. This section includes future appointments and future orders which are active, pending or scheduled. Future Appointments This section includes appointments that were scheduled to occur 6 months from the date of the Encounter, up to a maximum of 20 appointments. The data comes from all [place] treatment facilities. Appointment Date/Time Appointment Type Appointme nt Facility Name Dec 29, 2023 02:15 PM AMBULATORY - SURGERY AMELIA MANNING [facility] Jan 17, 2024 03:30 PM AMBULATORY - NONE [facility] Apr 09, 2024 07:01 AM AMBULATORY - NONE [facility] Advance Directives: All historical and current Section Date Range: From patient's date of to the date document was created. This section includes ALL of a patient's completed or amended VA Advance and Rescinded Directives. The entries below indicate that a directive exists for the patient, but an actual copy is not included with this document. The data comes from all [place] facilities. Date Advance Directives Provider Source Jul 16, 2017 ADVANCE DIRECTIVE MARVINLOLI Meek Dinero [facility] Jul 16, 2017 ADVANCE DIRECTIVE DISCUSSION FABIANA KISER [facility] Jan 14, 2017 ADVANCE DIRECTIVE DISCUSSION FABIANA [facility] [place] [facility] Jan 15, 2016 ADVANCE DIRECTIVE DISCUSSION FABIANA [facility] Encounter Notes: All associated encounter notes This section contains the clinical notes associated to the Encounter. Date/Time Encounter Note(s) Provider Source Nov 15, 2023 12:55 PM OPHTHALMOLOGY TECH NICIAN NOTE: LOCAL TITLE: DIGITAL MEDIA PLANNER NOTE STANDARD TITLE: DIGITAL MEDIA PLANNER NOTE DATE OF NOTE: NOV 15, 2023@12:55 ENTRY DATE: NOV 15, 2023@12:55:16 AUTHOR: ANNALISA MANZO EXP COSIGNER: URGENCY: STATUS: COMPLETED Requested test(s) done, baseline OCT of maculae OU results uploaded to windows server specialist for review. /dean/ ANNALISA MANZO [facility] TECHNICIAN Signed: 11/15/2023 12:55 [facility] Nov 15, 2023 12:53 PM OPTOMETRY NOTE: LOCAL TITLE: OPTOMETRY CLINIC NOTE STANDARD TITLE: OPTOMETRY NOTE DATE OF NOTE: NOV 15, 2023@12:53 ENTRY DATE: NOV 15, 2023@12:54:01 AUTHOR: AL PRASAD EXP COSIGNER: URGENCY: STATUS: COMPLETED OPTOMETRY CLINIC NOTE Has ADDENDA Reviewed and agree with tech notes, add: CC:diabetic eye exam HPI:NIDDM, last a1c ? mild blur at distance and at near OU, gradual denies pain, discomfort, floaters or flashes OU POhx: AMD?, wet, h/o injections in the past, last injection about 2 yrs ago in [place]; not currently on AREDS h/o fungal eye infection in OS while in [place] h/o CVA, not sure of any ocular sequelae but does note balance issues Pt oriented and alert x 3 Mood and affect normal Last refraction: unsure Vision: OD:CC(with glasses) OD: 20/20-1-3.00 -0.25 Vision: OS:CC(with glasses) 0S: 20/20-2 Current glasses: OD:-3.00 -0.25X39 PRISM: NO OS:-1.75 -1.31N676 PRISM: NO Add: +2.75 Manifest Refraction/Final Srx: OD: -3.25-0.81l227 VA:20/20-2 OS: -1.75-1.21c304 VA:20/20-2 Add:+2.75 BIOMICROSCOPY: (OU unless specified) Adnexa/Orbit- clear Eyelids/Lashes- moderate dermatochalasis OU Conjuctiva- clear Sclera- white and quiet Cornea- all layers clear Angle- 4VH AC- D and Q Iris- clear Lens-PCIOL cl and centered Ta20 per tech OPHTHALMOSCOPY (OU unless specified) Cup/Disc-.2 OD, OS Color- no pallor Margins- distinct Vessels- normal caliber, no hemes Macula- OD patch of small hard drusen, mottling, avascular; OS focal area of IRF inf to fovea with few MAs, few small hard drusen, (+)mild elevation inf to fovea, Vitreous- syneresis Periphery- clear flat and intact 360/reticular degeneration mac OCT OD mild ERM, overall foveal contour intact, few RPE changes consistent with drusen but there are no signs of irf or srf today OS slightly altered foveal contour, few intraretinal cystic spaces inf to fovea, no SRF Assessment/Plan 1.NIDDM s retinopathy OU, no DME, last a1c?, continue working on tight BSL control 2.CME OS, questionable if from small BRVO? vs ERM?, uncertain duration of finding, [facility] [place] [facility] BCVA today is 20/20-2 in OS, h/o CVA, -discussed findings in detail, unknown duration of finding, uncertain if retina would treat this but would like for patient to establish care with retina for further evaluation/management -pt/pt's daughter requests [facility] due to drive time to [facility], will alert Isi and Dr. Batista to assist, 4 weeks, retina VTD 3.Nonexudative AMD OU, intermediate OD, early OS -pt reports receiving injections in OU? in past? in [place] for wet amd, I question this however as both fundus findings and mac scan only show hard drusenoid changes, questionable if patient received injections for #2? -at any rate, pt is nonsmoker, recommend UV protection, diet rich in leafy greens, pt is not on AREDS currently, will wait to rx (per pt request) until patient is seen by retina to see if he needs them or not 4.RE/presbyopia, minimal change found today, cont with habitual 5.PCIOL OU, appropriate appearance, observe RTC: 1 yr VTDMRx with me 4 weeks, [facility] retina, evaluation of CME OS Is the patient legally blind? Based on: Primary Etiology of visual impairment:NO PXF = Pseudoexfoliation PDS = Pigment dispersion syndrome SAC = Seasonal allergic conjunctivitis VANESA = Dry eye syndrome CI = convergence insufficiency AI = accommodative insufficiency OMD = oculomotor dysfunction XP = Exophoria XT = Exotropia EP = Esophoria ET = Esotropia VT = Vision therapy Trab = Trabeculectomy Stereo = Stereopsis SRx = Spectacle Prescription SMA = Simple myopic astigmatism SHA = Simple hyperopic astigmatism RCE = Recurrent corneal erosion Pl = [place] FTW = radio time salesperson wear EBMD = Epithelial basement membrane dystrophy CF = count fingers CVF = Confrontation visual campbell Amp = Amplitude /es/ AL PRASAD AUTOMATION/CONTROLS MANAGER Signed: 11/15/2023 14:51 Receipt Acknowledged By: 11/15/2023 14:52 /es/ CHRISTIANO RINALDI APRN, [facility] NURSE PRACTITIONER 11/15/2023 16:24 /es/ MELANIE BATISTA MD STAFF ENGAGEMENT [facility] 11/15/2023 ADDENDUM STATUS: COMPLETED Found old notes from [place]. 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 S/P eyelea in 2016. I agree with the findings as there remains chronic macular edema. Will have patient still establish care with retina but due to the chronicity of condition uncertain if additional treatment is warranted. Happy to follow patient here annually going forward. /es/ AL PRASAD AUTOMATION/CONTROLS MANAGER Signed: 11/15/2023 15:07 AL PRASAD [facility] Nov 15, 2023 12:32 PM OPHTHALMOLOGY TECH NICIAN NOTE: LOCAL TITLE: DIGITAL MEDIA PLANNER NOTE STANDARD TITLE: DIGITAL MEDIA PLANNER NOTE DATE OF NOTE: NOV 15, 2023@12:32 ENTRY DATE: NOV 15, 2023@12:32:42 AUTHOR: ANNALISA MANZO COSIGNER: URGENCY: STATUS: COMPLETED Eye Start Exam Patient: KIRILL WHEELER Sex: MALE SSN: [id number] Birthdate: [birth year] Full Exam [place] here for yearly diabetic eye exam. Last Hemoglobin A1C unsure diagnosed with diabetes ~15yrs ago is currently taking: Jardiance (empagliflozin) C/o mild blurry vision with trouble focusing at near over the past year. No flashes, pain/discomfort or diplopia. [place] states he has a new floater in the left eye and unsure when it appeared. States he was forced by his family to move to [place] after his stroke. Active Outpatient Medications (including Supplies): Active Outpatient Medications Status ========= 1) DEPEND UNDERWEAR,MAXIMUM,MEN X-LARGE USE 1 BRIEF ACTIVE DIRECTED 2) MEDICATION ORGANIZER 7DAY/4 SLOT USE 1 ORGANIZER ACTIVE DIRECTED FOR MEDICATION ADMINISTRATION Active Non-VA Medications Status ========= 1) Non-VA ALLOPURINOL 100MG TAB 100MG MOUTH EVERY DAY ACTIVE 2) Non-VA AMLODIPINE BESYLATE 10MG TAB 10MG MOUTH EVERY ACTIVE DAY 3) Non-VA ASPIRIN 81MG EC TAB 81MG MOUTH EVERY DAY ACTIVE 4) Non-VA ATORVASTATIN CALCIUM 40MG TAB 40MG MOUTH EVERY ACTIVE DAY 5) Non-VA BENZONATATE 100MG CAP 100MG MOUTH EVERY 4 ACTIVE HOURS NEEDED 6) Non-VA CALCITRIOL 0.25MCG CAP 0.25MCG MOUTH EVERY DAY ACTIVE NEEDED 7) Non-VA CARVEDILOL 6.25MG TAB 6.25MG MOUTH TWICE A DAY ACTIVE 8) Non-VA EMPAGLIFLOZIN 10MG TAB 10MG MOUTH EVERY DAY ACTIVE 9) Non-VA FINASTERIDE 5MG TAB 5MG MOUTH EVERY DAY ACTIVE 10) Non-VA FISH OIL 1000MG (500MG DHA/EPA) CAP 1000MG ACTIVE MOUTH EVERY DAY 11) Non-VA HYDRALAZINE HCL 50MG TAB 50MG MOUTH THREE ACTIVE TIMES A DAY 12) Non-VA RAMIPRIL 10MG CAP 10MG MOUTH TWICE A DAY ACTIVE 13) Non-VA SODIUM BICARBONATE 650MG TAB 2600MG MOUTH ACTIVE TWICE A DAY 15 Total Medications Active problems - Computerized Problem List is the source for the followin. History of fall - Recent fall 07/19/2023-rib fracture followed by hospitalization 2. Diabetes mellitus type II 3. Benign essential hypertension 4. Benign prostatic hypertrophy 5. Hyperlipidemia 6. Coronary artery disease 7. Chronic kidney disease stage 4 8. Prosthetic aortic valve 9. Gout 10. History of cerebrovascular accident 11. Essential tremor 12. Family social history - first contatct- ISIAH Jama- [phone] - seconf contact- Manuel Ayala- [phone] - Tobacco-smoked cigarettes in the past quit in 1960 - Alcohol-none, occasional beer - Illicit drugs-none 13. 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 Closed fracture of multiple ribs - July 2023 fell in the bathroom Surgeries: SURGERIES - NONE FOUND Eye Medications Patient denies eye medication use. Allergies: Patient has answered NKA No new Allergies. Past Medical History: Diabetes No HGB A1C data available Hypertension High cholesterol Stroke 2020 w/high potassium levels of 10.3 Past eye history: Floaters: OS Macular degeneration: OU Past eye surgeries: Cataract: OU Retina: OU OD>OS w/injections last 2 yrs ([place], [place]) Social History: Alcohol use - Yes Tobacco use - No Family Ocular History: Denies Last refraction: unsure Vision: OD:CC(with glasses) OD: 20/20-1-3.00 -0.25 Vision: OS:CC(with glasses) 0S: 20/20-2 Current glasses: OD:-3.00 -0.25X39 PRISM: NO OS:-1.75 -1.52P741 PRISM: NO Add: +2.75 Confrontational Campbell: Full to finger counting: Right: Yes Left: Yes Extra Ocular Movement: Normal Pupils: Right: Round Left: Round Size: Right: 4 Left: 4 React to light: Right: Yes Left: Yes Afferent pupil defect: Right:No Left:No Intra-ocular pressure (IOP): OD: 16 OS: 20 x 2 Tonometry Dilation: mydriacyl 1% and neosynephrine OU Nov@12:42 /dean/ ANNALISA MANZO [facility] HEALTH SOFT BOARDER Signed: 11/15/2023 12:54 ANNALISA MANZO [facility]
--- OUTSIDE RECORDS SUMMARY | 2024-07-28 03:53 | XMS_ITS | Encounter Summary ---
Author Name [facility] [place] [facility] [place] Address [address] [place] [id number] Care Team Providers Care Fire Investigation Manager Name Role Phone YAZMIN HAGER Primary Care [...] Name Patient's Relationship to Policy Perez MEDICARE (WN) MEDICARE () PART A Dec 09, 2001 PART A [id number] KACEY KIRILL Calero PATIENT MEDICARE (WN) MEDICARE () PART B Dec 09, 2001 PART B [id number] KACEY KIRILL Calero PATIENT MEDICARE (WNR) MEDICARE (M) PART A Dec 09, 2001 PART A [id number] KACEY KIRILL Calero PATIENT MEDICARE (WNR) MEDICARE (M) PART B Dec 09, 2001 PART B [id number] NOELLEKIRILL SHETH PATIENT FOR LIFE [facility]ICA RE FOR LIFE Feb 05, 1999 WNR [id number] [phone] KIRILL JAMISON MICHELLE -FO R-LIFE [facility] RE FOR LIFE WNR Apr 11, 2015 FOR LIFE [id number] KACEY KIRILL Calero PATIENT Selected Encounter This section includes the information on record at [place] for the Encounter. Date/Time Encounter Type Encounter Description Reason Provider Source Sep 22, 2023 01:15 PM GAIT TRAINING THERAPY PHYSICAL THERAPY ICD-10-CM R26.89 Other abnormalities of gait and mobility JUNA ELLINGTON [place] Encounter Template Text not used by [facility] Assessments - Encounter Diagnoses This section includes the primary and secondary diagnoses documented for the Encounter. Date/Time Primary/Secondary Diagnosis Diagnosis Name Provider Source Sep 22, 2023 01:34 PM PRIMARY Other abnormalities of gait and mobility JUAN ELLINGTON [facility] Plan of Treatment: Future Appointments (+ 6 months) and Future Tests (+/- 45 days) The Plan of Treatment section includes future care activities for the patient from all [place] treatmentfacilities. This section includes future appointments and future orders which are active, pending or scheduled. Future Appointments This section includes appointments that were scheduled to occur 6 months from the date of the Encounter, up to a maximum of 20 appointments. The data comes from all [place] treatment facilities. Appointment Date/Time Appointment Type Appointme nt Facility Name Oct 11, 2023 07:00 AM AMBULATORY - NONE [facility] Nov 15, 2023 01:00 PM AMBULATORY - SURGERY [facility] Nov 15, 2023 02:15 PM AMBULATORY - [facility] Dec 29, 2023 02:15 PM AMBULATORY - [facility] Jan 17, 2024 03:30 PM AMBULATORY - NONE [facility] Vital Signs: All taken on the encounter date This section contains inpatient and outpatient Vital Signs collected on the date of the Encounter. Date/Time Temperature Pulse Blood Pressure Respiratory Rate SP02 Pain Height Weight Body Mass Index Source Sep 22, 2023 12:36 PM 146/74 mm[Hg] [facility] Sep 22, 2023 12:09 PM 98.2 F 57 /min 171/77 mm[Hg] 16 /min 97 % 0 67.323 in 208.7 lb 32 [facility] Social History: Smoking Status (Most current) and Tobacco Use (All prior to encounter date) This section includes the most current, and the historical, smoking and tobacco- related health factors from the [place] facility where the Encounter took place. Current Smoking Status This section includes the most current smoking, or tobacco-related health factor, from the [place] facility where the Encounter took place. Date/Time Current Smoking Status Comment Keith ity Sep 22, 2023 12:30 PM [place]-TOBACCO FORMER USER [facility] Tobacco Use History This section includes a history of the smoking, or tobacco-related health factors, that were collected on or before the date of the Encounter. The data comes from the [place] facility where the Encounter took place. Date/Time Smoking Status/Tobacco Use Comment F acility Sep 22, 2023 12:30 PM IN-TOBACCO QUIT 15 YRS OR MORE [facility] Advance Directives: All historical and current Section Date Range: From patient's date of to the date document was created. This section includes ALL of a patient's completed or amended [place] Advance and Rescinded Directives. The entries below indicate that a directive exists for the patient, but an actual copy is not included with this document. The data comes from all [place] facilities. Date Advance Directives Provider Source Jul 16, 2017 ADVANCE DIRECTIVE LOLI WONG JR [facility] Jul 16, 2017 ADVANCE DIRECTIVE DISCUSSION FABIANA KISER DUL[place]LAURIE SO [facility] Jan 14, 2017 ADVANCE DIRECTIVE DISCUSSION FABIANA KISER [address] Jan 15, 2016 ADVANCE DIRECTIVE DISCUSSION FABIANA KISER [address] Encounter Notes: All associated encounter notes This section contains the clinical notes associated to the Encounter. Date/Time Encounter Note(s) Provider Source Sep 22, 2023 01:15 PM PHYSICAL THERAPY I NITIAL EVALUATION NOTE: LOCAL TITLE: PT-EVALUATION NOTE STANDARD TITLE: PHYSICAL THERAPY INITIAL EVALUATION NOTE DATE OF NOTE: SEP 22, 2023@13:15 ENTRY DATE: SEP 22, 2023@13:15:51 AUTHOR: JUAN ELLINGTON COSIGNER: URGENCY: STATUS: COMPLETED Brief Physical Therapy Evaluation for Equipment Provision Dx: other abnormalities of gait/mobility Tx: Low complexity evaluation 10 minutes, gait training 8 minutes Active problems - Computerized Problem List is [...] 11. Essential tremor 12. Family social history 13. History of surgery - aortic valve repair - CABG SUBJECTIVE: Pt is a 87yo presenting to PT to be evaluated for a replacement rollator/walker. States all of his care is currently being managed through Medicare. Weight/Height for DME purposes: 208.7 lb [94.66 kg] (09/22/2023 12:09) 67.323 in [171.0 cm] (09/22/2023 12:09) Pt Goal: Obtain walker Pain: Left-sided rib pain since his fall Falls: 1 Fall about 4 weeks ago resulting in a hospital stay at the [facility], was released roughly 3 weeks ago. Subjective reporting. Home Environment: Endorses living in a bunk house, a ex-garage converted in to a living space on his son-in-law's property. All needs met on 1 level. Was getting in-home PT but as stopped. Prior Level of Function: Walking with single-point cane Red Flags: No personal history of cancer. Denies any UE or LE progressive weakness, unexplained weight loss, loss of bowel/bladder control, pain with rest, fevers, chills, infections. OBJECTIVE: OBSERVATION: ambulates back to PT exam room with older dolomite styled 4 wheeled walker. Currently, the brakes do not work. He is very pleasant and does not appear in acute pain or distress today. GAIT SPEED: 0.41 m/s with four-wheel walker < 0.4 m/s were more likely to be household ambulator 0.4 - 0.8 m/s limited community ambulator > 0.8 m/s community ambulator >1.1 for effective community ambulation Education and demonstration provided regarding proper rollator use including ambulation, brakes, curb assist, sitting on rollator to rest with rollator against stationary object, transfers and folding to load into vehicle. -Pt independently ambulating 50 ft with rollator -Pt independently manipulating brakes -Pt independently using curb assist -Pt independently transferring with device -Pt independently folding device -Pt instructed in adjusting rollator once received from prosthetics ASSESSMENT/PLAN: Pt appropriate for rollator to improve safety and tolerance for mobility. Pt able to ambulate using rollator independently. Issued from PT [employer]. Pt goal met and no further needs identified requiring skilled PT; discharge from PT at this time. CLINICAL PRESENTATION: stable Patient indicates readiness to learn, verbalizes understanding, agreement and satisfaction with the treatment plan. Denies further questions. GOAL: 1. Pt will safely ambulate with rollator walker to meet pt goal of increasing tolerated walking distance/walking more safely within 1 visits. GOAL MET. /dean/ Juan Ellington DPT Doctor of Physical Therapy Signed: 09/22/2023 13:34 JUAN ELLINGTON [facility]
--- OUTSIDE RECORDS SUMMARY | 2024-07-28 03:53 | XMS_ITS | Continuity of Care Document ---
Author Name [facility] Organization [facility] Care Team Providers Care Post Office Manager Name Role Phone [facility] Unavailable Unavailable Problems Combined list of problems from Department of Defense and Veterans Affairs facilities. It does not include entries that were removed or entered in error. Problem Status Onset Date Problem Type Date of Resolution Comments Source Abnormal gait due to impairment of balance Active Condition [facility] Acquired hammer toes of bilateral feet Active Condition [address] Arthralgia of the ankle and/or foot Active Condition [address] Benign essential hypertension Active Condition [facility] Benign prostatic hypertrophy Active Condition [facility] Bilateral hearing loss Active Condition [address] Chronic dermatitis Active Condition S 2018 Entered By: LUIS F CLEVELAND Comment: LEFT ANKLE [facility] Chronic kidney disease stage 4 Active Condition [facility] Closed fracture of multiple ribs Active Condition Sep 23, 2023 Entered By: YAZMIN HAGER Comment: July 2023 fell in the bathroom [facility] Coronary arteriosclerosis Active Condition Apr 26 Entered By: LUIS F CLEVELAND Comment: s/p CABG and AV replacement [address] Coronary artery disease Active Condition [facility] Diabetes mellitus Active Condition 2014 Entered By: LUIS F CLEVELAND Comment: type [address] Diabetes mellitus type II Active Condition [facility] Diabetic peripheral angiopathy Active Condition [address] Dyslipidemia Active Condition [facility] [address] [place] [address] Essential tremor Active Condition [facility] Family social history Active Condition Sep 23, 2023 Entered By: YAZMIN HAGER Comment: first mcdermottatctJuliocesar Cruzie- [phone] 16, 2023 Entered By: YAZMIN HAGER Comment: tawandagloria reymundo Ayala- [phone] 2022 Entered By: YAZMIN HAGER Comment: Tobacco-smoked cigarettes in the past quit in 1959Nov 2022 Entered By: YAZMIN HAGER Comment: Alcohol-none, occasional beerNov 2022 Entered By: YAZMIN HAGER Comment: Illicit drugs-none [facility] Gout Active Condition [address] Hallux rigidus Active Condition [facility] Hip pain Active Condition [address] History of cerebrovascular accident Active Condition [facility] History of fall Active Condition Sep 22, 2023 Entered By: YAZMIN HAGER Comment: Recent fall 07/19/2023-rib fracture followed by hospitalization [facility] History of surgery Active Condition N ov 2022 Entered By: YAZMIN HAGER Comment: aortic valve repairNov 2022 Entered By: YAZMIN HAGER Comment: CABG [facility] Hyperlipidemia Active Condition [facility] Hypertensive disorder Active Condition [address] Ingrowing toenail Active Condition [facility] [facility] Knee pain Active Condition [address] Lung mass Active Condition Feb 05 14 Entered By: LUIS F CLEVELAND Comment: 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 [address] Prosthetic aortic valve Active Condition [facility] Urinary incontinence Active Condition Jul 24, 2019 Entered By: LUIS F CLEVELAND Comment: WITH BPH [place] [facility] Achilles bursitis or tendinitis (ICD-9-CM 726.71) Inactive Condition 04/26/2015 [facility] Arthritis Inactive Condition 04/26/2015 Aug , 2 011 Entered By: LUIS F CLEVELAND Comment: HIPS, KNEES [address] Coronary Artery Disease Inactive Condition 04/26/2015 Feb 05, 2014 Entered By: LUIS F CLEVELAND Comment: S/P CABG X 3V AND AV REPLACEMENT 05/[address] Diabetes Mellitus Type II or unspecified Inactive Condition 04/26/[address] Diabetes Mellitus Type II or unspecified * Inactive Condition 04/26/2015 [facility] [place] [facility] Dyslipidemia (ICD-9-CM 272.4) Inactive Condition 04/26/2015 [facility] [place] [facility] Hearing loss Inactive Condition 04/26/[address] [facility] [address] [facility] Hypertension Inactive Condition [facility] Pain in joint involving ankle and foot (ICD-9-CM 719.47) Inactive Condition 04/26/[address] diabetes mellitus Active Condition [facility] Diabetes Patient Education - Blood Glucose Monitor Active Condition [facility] Diagnosis: ICD-10-CM H90.3 Sensorineural hearing loss, bilateral Active Diagnosis [facility] Diagnosis: ICD-10-CM Z46.1 Encounter for fitting and adjustment of hearing aid Active Diagnosis [facility] Diagnosis: ICD-10-CM E11.9 Type 2 diabetes mellitus without complications Active Diagnosis [facility] Diagnosis: ICD-10-CM R26.89 Other abnormalities of gait and mobility Active Diagnosis [facility] Diagnosis: ICD-10-CM Z86.73 Prsnl hx of TIA (TIA), and cereb infrc w/o resid deficits Active Diagnosis [facility] Medications Combined list of outpatient medications from Department of Defense and Veterans Affairs facilities.Medications provided include 1) outpatient medications from the last 15 months, and 2) patient-reported medications. Medication Details Route Status Patient Instructions Prescription Expires Prescription Number Last Dispense Date Ordering Provider Order Date Order Qty Source ACCU-CHEK SOFTCLIX (lancets), EACH, MISCELL, ZENOBIA DIAGNOSTI, 100 ea. BOX Active [id number] 03/13/20 2 4 2023 100 Pharmac y Data Transac tion Service Facilit y ACETAMINOPH EN 325MG TAB ACETAMIN OPHEN 325MG TAB Active TAKE ONE TABLET BY MOUTH EVERY 8 HOURS NEEDED FOR PAIN FOR PAIN Dec 24, 2023 100 Dec 24, 2024 [id number] Dec 26, 2023 [facility] ORAL ACTIVE 12/24/2024 [id number] RAUL HAGER 2023 100 [facility] ALLOPURINOL (ALLOPURINO L), 100MG, TABLET, ORAL, '[facility], 1000 ea. BOTTLE Active [id number] 4 2023 90 Pharmac y Data Transac tion Service Facilit y ALLOPURINOL (ALLOPURINO L), 100MG, TABLET, ORAL, '[facility], 1000 ea. BOTTLE Active [id number] 4 2023 90 Pharmac y Data Transac tion Service Facilit y ALLOPURINOL 100MG TAB ALLOPURI NOL 100MG TAB Non-VA TAKE ONE TABLET BY MOUTH EVERY DAY Sep 22, 2023 Non-VA Document ed by: MARITZA HAGER Document ed at: [facility] ORAL ACTIVE RAUL HAGER 2022 [facility] ALLOPURINOL 100MG TAB ALLOPURI NOL 100MG TAB Non-VA TAKE ONE TABLET BY MOUTH ONE TIME EACH DAY Jan 16, 2014 Non-VA Document ed by: ABHI CELVELAND Document ed at: [facility] ORAL ACTIVE LUIS F CLEVELAND 2013 [facility] AMLODIPINE BESYLATE (AMLODIPINE BESYLATE), 10 MG, TABLET, ORAL, [employer], 1000 ea. BOTTLE Active [id number] 4 2023 90 Pharmac y Data Transac tion Service Facilit y AMLODIPINE BESYLATE 10MG TAB AMLODIPI NE BESYLATE 10MG TAB Non-VA TAKE ONE TABLET BY MOUTH EVERY DAY Sep 22, 2023 Non-VA Document ed by: MARITZA HAGER Document ed at: [facility] ORAL ACTIVE RAUL HAGER 2022 [facility] ASPIRIN 81MG TAB,EC ASPIRIN 81MG TAB,EC Non-VA TAKE ONE TABLET BY MOUTH ONE TIME EACH DAY Jun 08, 2011 Non-VA Document ed by: ABHI CLEVELAND Document ed at: [facility] ORAL ACTIVE LUIS F CLEVELAND 2010 [facility] ASPIRIN 81MG TAB,EC ASPIRIN 81MG TAB,EC Non-VA TAKE ONE TABLET BY MOUTH EVERY DAY Sep 22, 2023 Non-VA Document ed by: MARITZA HAGER Document ed at: [facility] ORAL ACTIVE RAUL HAGER 2022 [facility] ATORVASTATI N CA 10MG TAB ATORVAST ATIN CA 10MG TAB Non-VA TAKE 20 MG BY MOUTH ONE TIME EACH DAY Jan 16, 2014 Non-VA Document ed by: ABHI CLEVELAND Document ed at: [facility] ORAL ACTIVE LUIS F CLEVELAND 2013 [facility] ATORVASTATI N CA 40MG TAB ATORVAST ATIN CA 40MG TAB Non-VA TAKE ONE TABLET BY MOUTH EVERY DAY Sep 22, 2023 Non-VA Document ed by: MARITZA HAGER Document ed at: [facility] ORAL ACTIVE RAUL HAGER 2022 [facility] ATORVASTATI N CALCIUM (atorvastat in calcium), 40 MG, TABLET, ORAL, [facility], 1000 ea. BOTTLE Active [id number] 4 2023 90 Pharmac y Data Transac tion Service Facilit y BENZONATATE 100MG CAP BENZONAT ATE 100MG CAP Non-VA TAKE 1 CAPSULE BY MOUTH EVERY 4 HOURS NEEDED Cough Sep 22, 2023 Non-VA Document ed by: MARITZA HAGER Document ed at: [facility] ORAL ACTIVE RAUL HAGER 2022 [facility] CALCITRIOL 0.25MCG CAP CALCITRI OL 0.25MCG CAP Non-VA TAKE 1 CAPSULE BY MOUTH EVERY DAY NEEDED Sep 22, 2023 Non-VA Document ed by: MARITZA HAGER Document ed at: [facility] ORAL ACTIVE RAUL HAGER 2022 [facility] CARVEDILOL (carvedilol ), 6.25 MG, TABLET, ORAL, [employer] 500 ea. BOTTLE Active [id number] 4 2023 180 Pharmac y Data Transac tion Service Facilit y CARVEDILOL 6.25MG TAB CARVEDIL OL 6.25MG TAB Non-VA TAKE ONE TABLET BY MOUTH TWICE A DAY Sep 22, 2023 Non-VA Document ed by: MARITZA HAGER Document ed at: [facility] ORAL ACTIVE RAUL HAGER 2022 [facility] CHOLECALCIF DEMETRI 25MCG (1,000UNIT) TAB CHOLECAL CIFEROL 25MCG (1,000UN IT) TAB Non-VA TAKE ONE TABLET BY MOUTH ONE TIME EACH DAY Jan 16, 2014 Non-VA Document ed by: ABHI CLEVELAND Document ed at: N. [facility]/ [facility] ORAL ACTIVE LUIS F CLEVELAND 2013 [facility] CYANOCOBALA MIN 1000MCG TAB CYANOCOB ALAMIN 1000MCG TAB Non-VA TAKE ONE TABLET BY MOUTH ONE TIME EACH DAY Jul 24, 2019 Non-VA Document ed by: ABHI CLEVELAND Document ed at: [facility] ORAL ACTIVE LUIS F CLEVELAND 2018 [facility] EMPAGLIFLOZ IN 10MG TAB EMPAGLIF LOZIN 10MG TAB Non-VA TAKE ONE TABLET BY MOUTH EVERY DAY Sep 22, 2023 Non-VA Document ed by: MARITZA HAGER Document ed at: [facility] ORAL ACTIVE RAUL HAGER 2022 [facility] FINASTERIDE (FINASTERID E), 5 MG, TABLET, ORAL, [facility], 90 ea. BOTTLE Active [id number] 4 2023 90 Pharmac y Data Transac tion Service Facilit y FINASTERIDE 5MG TAB FINASTER IGOR 5MG TAB Non-VA TAKE ONE TABLET BY MOUTH EVERY DAY Sep 22, 2023 Non-VA Document ed by: MARITZA HAGER Document ed at: [facility] ORAL ACTIVE RAUL HAEGR 2022 [facility] FINASTERIDE 5MG TAB FINASTER IGOR 5MG TAB Non-VA TAKE ONE TABLET BY MOUTH ONE TIME EACH DAY Jan 16, 2014 Non-VA Document ed by: ABHI CLEVELAND Document ed at: [facility] ORAL ACTIVE LUIS F CLEVELAND 2013 [facility] FISH OIL 1000MG (500MG DHA/EPA) CAP,ORAL FISH OIL 1000MG (500MG DHA/EPA) CAP,ORAL Non-VA TAKE 1 CAPSULE BY MOUTH EVERY DAY Sep 22, 2023 Non-VA Document ed by: MARITZA HAGER Document ed at: [facility] ORAL ACTIVE RAUL HAGER 2022 [facility] FISH OIL CAP/TAB FISH OIL CAP/TAB Non-VA TAKE 1 CAP BY MOUTH ONE TIME EACH DAY Jan 16, 2014 Non-VA Document ed by: ABHI CLEVELAND Document ed at: [facility] ORAL ACTIVE LUIS F CLEVELAND 2013 [facility] FREESTYLE LITE TEST STRIP (blood sugar diagnostic) , STRIP, MISCELL, SWANN DIABETES, 50 ea. BOX Active [id number] 4 2023 100 Pharmac y Data Transac tion Service Facilit y FREESTYLE LITE TEST STRIP (blood sugar diagnostic) , STRIP, MISCELL, SWANN DIABETES, 50 ea. BOX Active [id number] 4 2023 100 Pharmac y Data Transac tion Service Facilit y FREESTYLE LITE TEST STRIP (blood sugar diagnostic) , STRIP, MISCELL, SWANN DIABETES, 50 ea. BOX Active [id number] 4 2023 100 Pharmac y Data Transac tion Service Facilit y GLIPIZIDE XL [NON-VA] TAB,SA GLIPIZID E XL [NON-VA] TAB,SA Non-VA TAKE 5MG BY MOUTH ONE TIME EACH DAY Jan 15, 2016 Non-VA Document ed by: ABHI CLEVELAND Document ed at: [address] [facility] ORAL ACTIVE LUIS F CLEVELAND [address] HYDRALAZINE HCL (hydralazin e HCl), 50 MG, TABLET, ORAL, [facility], 1000 ea. BOTTLE Active [id number] 4 2023 405 Pharmac y Data Transac tion Service Facilit y HYDRALAZINE HCL 50MG TAB HYDRALAZ INE HCL 50MG TAB Non-VA TAKE ONE TABLET BY MOUTH THREE TIMES A DAY Sep 22, 2023 Non-VA Document ed by: MARITZA HAGER Document ed at: [facility] ORAL ACTIVE RAUL HAGER 2022 [facility] HYDRALAZINE HCL 50MG TAB HYDRALAZ INE HCL 50MG TAB Non-VA TAKE ONE TABLET BY MOUTH THREE TIMES A DAY Jan 16, 2014 Non-VA Document ed by: ABHI CLEVELAND Document ed at: [place]. [place] ORAL ACTIVE LUIS F CLEVELAND 2013 [facility] JARDIANCE (EMPAGLIFLO ZIN), 10 MG, TABLET, ORAL, BOEHRINGER ING., 90 ea. BOTTLE Active [id number] 4 2023 90 Pharmac y Data Transac tion Service Facilit y JARDIANCE (EMPAGLIFLO ZIN), 10 MG, TABLET, ORAL, BOEHRINGER ING., 90 ea. BOTTLE Active [id number] 4 2023 90 Pharmac y Data Transac tion Service Facilit y METOPROLOL TARTRATE 25MG TAB METOPROL OL TARTRATE 25MG TAB Non-VA TAKE ONE-HALF TABLET BY MOUTH EVERY 12 HOURS Jan 16, 2014 Non-VA Document ed by: ABHI CLEVELAND Document ed at: [facility] ORAL ACTIVE LUIS F CLEVELAND 2013 [facility] MOMETASONE FUROATE MONOHYDRATE 50MCG/ACTUA T SUSP,NASAL, 17GM MOMETASO NE FUROATE MONOHYDR ATE 50MCG/AC TUAT SUSP,CHRIS AL,17GM Non-VA SPRAY 1 SPRAY IN EACH NOSTRIL ONE TIME EACH DAY Jun 09, 2012 Non-VA Document ed by: ABHI CLEVELAND Document ed at: [facility] NASAL ACTIVE LUIS F CLEVELAND 2011 [facility] NITROGLYCER IN 0.4MG TAB,SUBLING UAL NITROGLY CERIN 0.4MG TAB,SUBL INGUAL DISSOLVE ONE TABLET UNDER THE TONGUE EVERY 5 MINUTES FOR UP TO 3 DOSES IF NEEDED FOR CHEST PAIN FOR CHEST PAIN Dec 24, 2023 100 Jan 23, 2024 [id number] Dec 26, 2023 [facility] SUBLIN GUAL 01/23/2024 [id number] RAUL HAGER 2023 100 [facility] NITROGLYCER IN 0.4MG TAB,SUBLING UAL NITROGLY CERIN 0.4MG TAB,SUBL INGUAL Non-VA DISSOLVE ONE TABLET UNDER THE TONGUE Q5MINS PRN Jan 16, 2014 Non-VA Document ed by: ABHI CLEVELAND Document ed at: [facility] SUBLIN GUAL ACTIVE LUIS F CLEVELAND 2013 [facility] RAMIPRIL (ramipril), 10 MG, CAPSULE, ORAL, [facility], 500 ea. BOTTLE Active [id number] 2023 180 Pharmac y Data Transac tion Service Facilit y RAMIPRIL (ramipril), 10 MG, CAPSULE, ORAL, [facility], 500 ea. BOTTLE Active [id number] 4 2023 180 Pharmac y Data Transac tion Service Facilit y RAMIPRIL 1.25MG CAP RAMIPRIL 1.25MG CAP Non-VA TAKE 8 CAPSULES BY MOUTH ONE TIME EACH DAY Jun 08, 2011 Non-VA Document ed by: ABHI CLEVELAND Document ed at: [facility] ORAL ACTIVE LUIS F CLEVELAND 2010 [facility] RAMIPRIL 10MG CAP RAMIPRIL 10MG CAP Non-VA TAKE 1 CAPSULE BY MOUTH TWICE A DAY Sep 22, 2023 Non-VA Document ed by: MARITZA HAGER Document ed at: [facility] ORAL ACTIVE RAUL HAGER 2022 [facility] SODIUM BICARBONATE 650MG TAB SODIUM BICARBON ATE 650MG TAB Non-VA TAKE TWO TABLETS BY MOUTH TWICE A DAY Feb 25, 2024 Non-VA Document ed by: MARITZA HAGER Document ed at: [facility] ORAL ACTIVE RAUL HAGER 2023 [facility] Immunizations Combined list of available immunizations from the Department of Defense and Veterans Affairs facilities. Immunization Series Date Given Administered By Site Reaction Lot Number CVX Code Drug Green End Worker Status Comments Source COVID-19 (Supertec), MRNA, LNP-S, PF, CONOR-SUCROSE, 30 MCG/0.3 ML (AGES 12+ YEARS) 6 2022 GUERRERO THOMPSON JILL RIGHT DELTO ID [id number] 309 complet ed [facility] TDAP 2022 GUERRERO THOMPSON OLE JILL LEFT DELTO ID [id number] 115 complet ed [facility] INFLUENZA VACCINE, QUADRIVALENT, ADJUVANTED 2022 205 complet ed [facility] COVID-19 (Supertec), MRNA, LNP-S, BIVALENT, PF, 30 MCG/0.3 ML DOSE 2021 300 complet ed [facility] INFLUENZA VACCINE, QUADRIVALENT, ADJUVANTED [address] [facility] COVID-19 (MODERNA), MRNA, LNP-S, PF, 100 MCG/0.5ML DOSE OR 50 MCG/0.25ML DOSE [address] [facility] COVID-19, mRNA, LNP-S, PF, 100 mcg or 50 mcg dose 2021 SHAUN [employer] (MOD) Not Given COVID-19, mRNA, LNP-S, PF, 100 mcg or 50 mcg dose [facility] PNEUMOCOCCAL CONJUGATE PCV20, POLYSACCHARID E RUE959 CONJUGATE, ADJUVANT, PF [address] [facility] INFLUENZA VACCINE, QUADRIVALENT, ADJUVANTED [address] [facility] COVID-19 (MODERNA), MRNA, LNP-S, PF, 100 MCG/0.5ML DOSE OR 50 MCG/0.25ML DOSE [address] [facility] COVID-19, mRNA, LNP-S, PF, 100 mcg or 50 mcg dose 2020 [place] [employer] (MOD) Not Given COVID-19, mRNA, LNP-S, PF, 100 mcg or 50 mcg dose [facility] COVID-19 (MODERNA), MRNA, LNP-S, PF, 100 MCG/0.5ML DOSE OR 50 MCG/0.25ML DOSE [address] [facility] COVID-19, mRNA, LNP-S, PF, 100 mcg or 50 mcg dose 2020 REYNOSO, [employer] (MOD) Not Given COVID-19, mRNA, LNP-S, PF, 100 mcg or 50 mcg dose [facility] COVID-19 (MODERNA), MRNA, LNP-S, PF, 100 MCG/0.5ML DOSE OR 50 MCG/0.25ML DOSE [address] [facility] INFLUENZA VACCINE, QUADRIVALENT, ADJUVANTED [address] [facility] INFLUENZA, INJECTABLE, QUADRIVALENT, PRESERVATIVE FREE 2018 150 complet ed [facility] INFLUENZA, INJECTABLE, QUADRIVALENT, PRESERVATIVE FREE 2016 150 complet ed N. [facility] INFLUENZA, SEASONAL, INJECTABLE, PRESERVATIVE FREE 2015 140 complet ed N. [facility] INFLUENZA, UNSPECIFIED FORMULATION 2014 88 complet ed N. [facility] INFLUENZA, UNSPECIFIED FORMULATION 2013 88 complet ed N. [facility] PNEUMOCOCCAL CONJUGATE PCV 13 2013 133 complet ed verbal N. [facility] INFLUENZA, UNSPECIFIED FORMULATION 2012 88 complet ed N. [facility] Varicella Zoster (HISTORICAL) 2012 complet ed N. [facility] TD(ADULT) UNSPECIFIED FORMULATION 2011 139 complet ed N. [facility] INFLUENZA, UNSPECIFIED FORMULATION 2010 88 complet ed N. [facility] PNEUMOCOCCAL, UNSPECIFIED FORMULATION 2009 109 complet ed N. [facility] INFLUENZA, UNSPECIFIED FORMULATION 2009 88 complet ed N. [facility] PNEUMOCOCCAL, UNSPECIFIED FORMULATION 2009 109 complet ed N. [facility] TD(ADULT) UNSPECIFIED FORMULATION 2007 139 complet ed N. [facility] Vital Signs Combined list of inpatient and outpatient Vital Signs from Department of Defense and Veterans Affairs, ranging from 12 months to all on record, depending upon the facility. Vital Sign Value Date Comments Source SYSTOLIC BLOOD PRESSURE 171 09/22/2023 12:09:59 [facility] DIASTOLIC BLOOD PRESSURE 77 09/22/2023 12:09:59 [facility] PULSE OXIMETRY 97% 09/22/2023 12:09:59 [facility] WEIGHT 208.7 09/22/2023 12:09:59 [facility] BMI 32kg/m2 09/22/2023 12:09:59 [facility] PAIN 0 09/22/2023 12:09:59 [facility] HEIGHT 67.323 09/22/2023 12:09:59 [facility] TEMPERATURE 98.2 09/22/2023 12:09:59 [facility] PULSE 57 09/22/2023 12:09:59 [facility] RESPIRATION 16 09/22/2023 12:09:59 [facility] Encounters Combined list of: 1) Encounters from Department of [facility] Affairs facilities going back up to thelast 18 months. 2) Encounters from the Department of [facility] facilities going back up to 280 months. Location Location Details Encounter Type Encounter Number Reason For Visit Attending Provider ADM Date DC Date Status Disposition Source [place] [facility] Outpatient Encounter [id number] 08/03 [facility] [place] [facility] Outpatient Encounter [id number] 09/22 [facility] OFFICE O/P NEW LOW 30-44 MIN [id number] Diagnos is: ICD-10- CM Z86.73 Prsnl hx of TIA (TIA), and cereb infrc w/o resid deficit s
SHADE HAGER D 09/22 [facility] GAIT TRAINING THERAPY [id number] Diagnos is: ICD-10- CM R26.89 Other abnorma lities of gait and mobilit y
MADELIN JOSEPH 09/22 [facility] [place] [facility] Outpatient Encounter [id number] ANNALISA RANDALL 10/06 [facility] [place] [facility] Outpatient Encounter [id number] 11/03 [facility] [place] [facility] Outpatient Encounter [id number] 11/04 [facility] OFFICE O/P NEW MOD 45 MIN [id number] Diagnos is: ICD-10- CM E11.9 Type 2 diabete s mellitu s without complic ations< br/> AL PRASAD 11/15 [facility] HEARING AID CHECK BOTH EARS [id number] Diagnos is: ICD-10- CM Z46.1 Encount er for fitting and adjustm ent of hearing aid<br/ > MISAEL BUSTAMANTE A 11/15 [facility] [place] [facility] Outpatient Encounter [id number] 11/17 [facility] [place] [facility] Outpatient Encounter [id number] 12/13 [facility] [place] [facility] Outpatient Encounter [id number] 12/22 [facility] [place] [facility] Outpatient Encounter [id number] 12/23 [facility] CONFORMITY EVALUATION [id number] Diagnos is: ICD-10- CM H90.3 Sensori neural hearing loss, bilater al
SHIRLEY POMPA A 12/29 [facility] [place] [facility] Outpatient Encounter [id number] 01/16 [facility] [place] [facility] Outpatient Encounter [id number] 02/02 [facility] [place] [facility] Outpatient Encounter [id number] 02/24 [facility] [place] [facility] Outpatient Encounter [id number] 04/10 [facility] [place] [facility] Outpatient Encounter [id number] 04/18 [facility] [place] [facility] Outpatient Encounter [id number] 06/20 [facility] [place] [facility] Outpatient Encounter [id number] 06/28 [facility] Social History Combined list of available smoking, tobacco, and other social history from Department of Defense and Veterans Affairs facilities. Social History Type Response Date Comment Sourc e Tobacco smoking status NHIS VA-TOBACCO FORMER USER 09/22/2023 [facility] History of tobacco use VA-TOBACCO QUIT 15 YRS OR MORE 09/22/2023 [facility] History of tobacco use VA-TOBACCO QUIT 15 YRS OR MORE 07/26/2018 [facility] History of tobacco use LIFETIME NON-TOBACCO USER 07/14/2018 [facility] History of tobacco use LIFETIME NON-TOBACCO USER 07/16/2017 [facility] History of tobacco use LIFETIME NON-TOBACCO USER 01/14/2017 [facility] History of tobacco use LIFETIME NON-TOBACCO USER 01/15/2016 [facility] History of tobacco use LIFETIME NON-TOBACCO USER 01/15/2015 [facility] History of tobacco use TOBACCO PACK YEARS <30 01/16/2014 3 [facility] History of tobacco use TOBACCO NON USE GREATER THAN 12 MONTHS 06/09/2012 [facility] History of tobacco use TOBACCO NON USE GREATER THAN 12 MONTHS 06/02/2011 [facility] This section is an empty social history section. DoD Advance Directives List of completed, amended, or rescinded Advance Directives on record at Department of Veterans Affairs facilities. An actual copy of the Directive is not included. Date Advance Directive Provider Source 07/16/2017 ADVANCE DIRECTIVE LOLI WONG [facility] 07/16/2017 ADVANCE DIRECTIVE DISCUSSION FABIANA KISER [facility] 01/14/2017 ADVANCE DIRECTIVE DISCUSSION FABIANA KISER [address] 01/15/2016 ADVANCE DIRECTIVE DISCUSSION FABIANA KISER [address] [address]
--- OUTSIDE RECORDS SUMMARY | 2024-07-28 03:53 | XMS_ITS | Encounter Summary ---
Author Name [facility] Affairs ([place]) Organization [facility] ([place]) Address [address] [place] [address] Care Team Providers Care Wrapper Off Name Role Phone YAZMIN HAGER Primary Care [...] PART A Dec 09, 2001 PART A [id number] [phone] KACEY KIRILL Calero PATIENT MEDICARE (WN) MEDICARE () PART B Dec 09, 2001 PART B [id number] [phone] KACEY GalileaKIRILL PATIENT MEDICARE (WNR) MEDICARE (M) PART A Dec 09, 2001 PART A [id number] KACEY KIRILL Calero PATIENT MEDICARE (WNR) MEDICARE (M) PART B Dec 09, 2001 PART B [id number] KACEY KIRILL Calero PATIENT FOR LIFE [facility] RE FOR LIFE Feb 05, 1999 WNR [id number] KIRILL JAMISON -FO R-LIFE [facility] FOR LIFE WNR Apr 11, 2015 FOR LIFE [id number] KIRILL JAMISON PATIENT Selected Encounter This section includes the information on record at [place] for the Encounter. Date/Time Encounter Type Encounter Description Reason Provider Source Nov 15, 2023 02:15 PM HEARING AID CHECK BOTH EARS AUDIOLOGY ICD-10-CM Z46.1 Encounter for fitting and adjustment of hearing aid LAURA BUSTAMANTE [place] Encounter Template Text not used by [place] Assessments - Encounter Diagnoses This section includes the primary and secondary diagnoses documented for the Encounter. Date/Time Primary/Secondary Diagnosis Diagnosis Name Provider Source Nov 15, 2023 03:09 PM PRIMARY Encounter for fitting and adjustment of hearing aid LAURA BUSTAMANTE [facility] Nov 15, 2023 03:09 PM SECONDARY Encntr for exam of ears and hearing w oth abnormal findings LAURA BUSTAMANTE CB Nov 15, 2023 03:09 PM SECONDARY Sensorineural hearing loss, bilateral LAURA BUSTAMANTE Nov 15, 2023 03:09 PM SECONDARY Tinnitus, bilateral LAURA BUSTAMANTE CB Plan of Treatment: Future Appointments (+ 6 months) and Future Tests (+/- 45 days) The Plan of Treatment section includes future care activities for the patient from all [place] treatmentfacilities. This section includes future appointments and future orders which are active, pending or scheduled. Future Appointments This section includes appointments that were scheduled to occur 6 months from the date of the Encounter, up to a maximum of 20 appointments. The data comes from all [place] treatment facilities. Appointment Date/Time Appointment Type Appointme nt Facility Name Dec 29, 2023 02:15 PM AMBULATORY - SURGERY AMELIA MANNING [facility] Jan 17, 2024 03:30 PM AMBULATORY - NONE [facility] Apr 09, 2024 07:01 AM AMBULATORY - NONE [facility] Advance Directives: All historical and current Section Date Range: From patient's date of to the date document was created. This section includes ALL of a patient's completed or amended [place] Advance and Rescinded Directives. The entries below indicate that a directive exists for the patient, but an actual copy is not included with this document. The data comes from all [place] facilities. Date Advance Directives Provider Source Jul 16, 2017 ADVANCE DIRECTIVE [facility] Jul 16, 2017 ADVANCE DIRECTIVE DISCUSSION FABIANA [facility] Jan 14, 2017 ADVANCE DIRECTIVE DISCUSSION [facility]NA [facility] Jan 15, 2016 ADVANCE DIRECTIVE DISCUSSION FABIANA [facility] Encounter Notes: All associated encounter notes This section contains the clinical notes associated to the Encounter. Date/Time Encounter Note(s) Provider Source Nov 15, 2023 02:27 PM AUDIOLOGY NOTE: LOCAL TITLE: AUDIOLOGY CLINIC NOTE STANDARD TITLE: AUDIOLOGY NOTE DATE OF NOTE: NOV 15, 2023@14:27 ENTRY DATE: NOV 15, 2023@14:27:56 AUTHOR: LAURA BUSTAMANTE COSIGNER: URGENCY: STATUS: COMPLETED SUBJECT: Evaluation and selection DIAGNOSIS: Encounter for examination of ears and hearing Encounter for Fitting and Adjustment of Hearing Aid Sensorineural loss AU Tinnitus AU REASON FOR VISIT: HEARING EVALUATION AND HEARING AID SELECTION, 60 MINUTES: Eau Galle was seen in the clinic today for a comprehensive audiologic evaluation, hearing aid selection, and hearing aid check. The was fit with hearing aids at the [facility] in 2018. The is Service Connected for Hearing Loss / Tinnitus. Eau Galle was accompanied by his daughter. The currently wears the following hearing aids: Hearing Aids: 11/18/17 PHONAK MATEO V90-MIKAELA R [id number] 11/11/20 11/18/17 PHONAK MATEO V90-MIKAELA L [id number] 11/11/20 573BY ALCOVA HISTORY: is eligible for new hearing aid technology and current set will become back-ups. He feels his hearing has decreased. He said his tinnitus has remained stable. He denied ear pain, aural fullness, otorrhea, dizziness and sudden otologic changes. His primary complaint is difficulties understanding speech, especially in background noise. PROCEDURES: OTOSCOPY: Bilaterally: Free of excessive cerumen. Normal appearing TM's and canals. TYMPANOMETRY: RIGHT EAR: DNT LEFT EAR: DNT AUDIOMETRICS: Air conduction, bone conduction and speech testing were completed bilaterally. Transducer: Insert phones Reliability: Good RIGHT EAR (Hz) 250 [phone] 1500 2000 3000 4000 6000 8000 Air: See Audiogram Display under Tools ?? AUDIOLOGY ?? ROES or see JENNY Database Bone: See Audiogram Display under Tools ?? AUDIOLOGY ?? ROES or see JENNY Database LEFT EAR (Hz) 250 731 170 1774 1500 2000 3000 4000 6000 8000 Air: See Audiogram Display under Tools ?? AUDIOLOGY ?? ROES or see JENNY Database Bone: See Audiogram Display under Tools ?? AUDIOLOGY ?? ROES or see JENNY Database - All thresholds are in dB HL * = Masked Threshold SRT: Spondees Right: 70 dB HL Left: 70 dB HL Pure tone results were consistent with speech secretary receptionist thresholds. WORD RECOGNITION: / - word list RIGHT EAR: 84% Level: 90* dB LEFT EAR: 72% Level: 90* dB SUMMARY: Hearing is stable AU compared to the last examination in [facility] from 2017. RIGHT EAR: Moderately severe to severe sensorineural hearing loss with mildly impaired word comprehension. LEFT EAR: Moderately severe to severe sensorineural hearing loss with moderately impaired word comprehension. AMPLIFICATION: continues to be a good candidate for hearing aid use. was counseled on his type, degree and configuration of hearing loss using a standard curriculum. Different styles/technologies were reviewed with consideration given to veterans listening situations and lifestyle needs. The has good vision, memory, and dexterity for hearing aid use. Earmold impressions taken bilaterally without complication. Otoscopy normal post earmold impression procedure, AU. Hearing aids ordered: PHONAK AUDEO L90-RL MIKAELA hearing aids (silver quinones, size 2 P receivers, canal lock cshells) were selected and ordered today. Accessories ordered: TV connector, pair to his iPad for phone calls The veterans current hearing aids were cleaned, checked and are in good working order. PLAN: 1. Eau Galle will be scheduled for a 60-minute hearing aid fitting appointment. 2. PATIENT IS IN AGREEMENT WITH THIS PLAN. /dean/ FERNIE RAMÍREZ LOTTERY OFFICE MANAGER Signed: 11/15/2023 15:10 LAURA BUSTAMANTE OC
--- OUTSIDE RECORDS SUMMARY | 2024-07-28 03:53 | XMS_ITS | Encounter Summary ---
Author Name [facility] [facility] [place] [facility] [place] [facility] [place] Address [address] [place] [address] Care Team Providers Care Production Control Supervisor Name Role Phone YAZMIN HAGER Primary Care [...] PART A Dec 09, 2001 PART A [id number] [phone] KACEY GalileaKIRILL PATIENT MEDICARE (WNR) MEDICARE () PART B Dec 09, 2001 PART B [id number] [phone] KACEY GalileaKIRILL PATIENT MEDICARE (WNR) MEDICARE (M) PART A Dec 09, 2001 PART A [id number] KACEY KIRILL Calero PATIENT MEDICARE (WNR) MEDICARE (M) PART B Dec 09, 2001 PART B [id number] KACEY GalileaKIRILL PATIENT FOR LIFE [facility] RE FOR LIFE Feb 05, 1999 WNR [id number] KIRILL JAMISON -FO R-LIFE [facility] WNR Apr 11, 2015 MARCO GUEVARA [id number] KACEY GalileaKIRILL PATIENT Selected Encounter This section includes the information on record at [place] for the Encounter. Date/Time Encounter Type Encounter Description Reason Provider Source Sep 22, 2023 12:30 PM OFFICE O/P NEW LOW 30-44 MIN PRIMARY CARE/MEDICINE ICD-10-CM Z86.73 Prsnl hx of TIA (TIA), and cereb infrc w/o resid deficits YAZMIN HAGER [place] Encounter Template Text not used by [place] Assessments - Encounter Diagnoses This section includes the primary and secondary diagnoses documented for the Encounter. Date/Time Primary/Secondary Diagnosis Diagnosis Name Provider Source Sep 23, 2023 01:43 PM PRIMARY Prsnl hx of TIA (TIA), and cereb infrc w/o resid deficits YAZMIN HAGER [facility] Sep 23, 2023 01:43 PM SECONDARY Encntr for general adult medical exam w/o abnormal findings YAZMIN HAGER [facility] Sep 23, 2023 01:43 PM SECONDARY Encounter for immunization DANIA LLANOS [facility] Plan of Treatment: Future Appointments (+ 6 months) and Future Tests (+/- 45 days) The Plan of Treatment section includes future care activities for the patient from all [place] treatmentfacilities. This section includes future appointments and future orders which are active, pending or scheduled. Future Appointments This section includes appointments that were scheduled to occur 6 months from the date of the Encounter, up to a maximum of 20 appointments. The data comes from all [place] treatment facilities. Appointment Date/Time Appointment Type Appointme nt Facility Name Oct 11, 2023 07:00 AM AMBULATORY - NONE [facility] Nov 15, 2023 01:00 PM AMBULATORY - SURGERY [facility] Nov 15, 2023 02:15 PM AMBULATORY - SURGERY [facility] Dec 29, 2023 02:15 PM AMBULATORY - SURGERY [facility] Jan 17, 2024 03:30 PM AMBULATORY - NONE [facility] Vital Signs: All taken on [...] % 0 67.323 in 208.7 lb 32 [facility] Immunizations: All administered on the encounter date This section contains immunizations associated to the Encounter. Immunization Series Date Issued Reaction Comments COVID-19 (PFIZER), MRNA, LNP -S, PF, CONOR-SUCROSE, 30 MCG/0.3 ML (AGES 12+ YEARS) 6 Sep 22, 2023 TDAP Sep 22, 2023 Social History: Smoking Status (Most current) and Tobacco Use (All prior to encounter date) This section includes the most current, and the historical, smoking and tobacco- related health factors from the [place] facility where the Encounter took place. Current Smoking Status This section includes the most current smoking, or tobacco-related health factor, from the [place] facility where the Encounter took place. Date/Time Current Smoking Status Comment Facil ity Sep 22, 2023 12:30 PM VA-TOBACCO FORMER USER [facility] Tobacco Use History This section includes a history of the smoking, or tobacco-related health factors, that were collected on or before the date of the Encounter. The data comes from the [place] facility where the Encounter took place. Date/Time Smoking Status/Tobacco Use Comment F acility Sep 22, 2023 12:30 PM VA-TOBACCO QUIT 15 YRS OR MORE [facility] Advance Directives: All historical and current Section Date Range: From patient's date of to the date document was created. This section includes ALL of a patient's completed or amended [place] Advance and Rescinded Directives. The entries below indicate that a directive exists for the patient, but an actual copy is not included with this document. The data comes from all [place] facilities. Date Advance Directives Provider Source Jul 16, 2017 ADVANCE DIRECTIVE [facility] [facility] Jul 16, 2017 ADVANCE DIRECTIVE DISCUSSION FABIANA KISER [facility] Jan 14, 2017 ADVANCE DIRECTIVE DISCUSSION [place]NA [facility] [place] [address] [place] [address] Jan 15, 2016 ADVANCE DIRECTIVE DISCUSSION FABIANA [facility]ISER [facility] Encounter Notes: All associated encounter notes This section contains the clinical notes associated to the Encounter. Date/Time Encounter Note(s) Provider Source Sep 22, 2023 02:32 PM ADDENDUM: LOCAL TITLE: Addendum STANDARD TITLE: ADDENDUM DATE OF NOTE: SEP 22, 2023@14:32:38 ENTRY DATE: SEP 22, 2023@14:32:39 AUTHOR: DENG STUART COSIGNER: URGENCY: STATUS: COMPLETED Please update banner to [employer] /es/ DENG STUART [facility] Signed: 09/22/2023 14:32 Receipt Acknowledged By: 09/24/2023 12:41 /es/ SHERRI PARHAM [facility] Associate Group Recreation Professor for MUSTAPHA FIGUEROA --- Original Document --- 09/22/23 [facility] NURSING PROGRESS NOTE: TYPE OF VISIT: Appointment Check In Type of appointment: In-person appointment REASON FOR VISIT: [facility] ALLERGIES: Patient has answered NKA VITAL SIGNS: Blood Pressure: 171/77 (09/22/2023 12:09) Pulse: 57 (09/22/2023 12:09) Respiration: 16 (09/22/2023 12:09) Temperature: 98.2 F [36.8 C] (09/22/2023 12:09) Weight: 208.7 lb [94.66 kg] (09/22/2023 12:09) Height: 67.323 in [171.0 cm] (09/22/2023 12:09) BMI: 32.4 O2 Sat: 97% (09/22/2023 12:09) Pain: 0 (09/22/2023 12:09) PAIN SCREEN: Patient is not having significant pain that they wish to discuss with their provider today. MEDICATION Active Outpatient Medications (including Supplies): Non-VA ALLOPURINOL 100MG TAB 100MG MOUTH EVERY DAY ACTIVE Non-VA AMLODIPINE BESYLATE 10MG TAB 10MG MOUTH EVERY DAY ACTIVE Non-VA ASPIRIN 81MG EC TAB 81MG MOUTH EVERY DAY ACTIVE Non-VA ATORVASTATIN CALCIUM 40MG TAB 40MG MOUTH EVERY DAY ACTIVE Non-VA BENZONATATE 100MG CAP 100MG MOUTH EVERY 4 HOURS ACTIVE NEEDED Non-VA CALCITRIOL 0.25MCG CAP 0.25MCG MOUTH EVERY DAY ACTIVE NEEDED Non-VA CARVEDILOL 6.25MG TAB 6.25MG MOUTH TWICE A DAY ACTIVE Non-VA EMPAGLIFLOZIN 10MG TAB 10MG MOUTH EVERY DAY ACTIVE Non-VA FINASTERIDE 5MG TAB 5MG MOUTH EVERY DAY ACTIVE Non-VA FISH OIL 1000MG (500MG DHA/EPA) CAP 1000MG MOUTH ACTIVE EVERY DAY Non-VA HYDRALAZINE HCL 50MG TAB 50MG MOUTH THREE TIMES A ACTIVE DAY Non-VA RAMIPRIL 10MG CAP 10MG MOUTH TWICE A DAY ACTIVE Non-VA SODIUM BICARBONATE 650MG TAB 2600MG MOUTH TWICE A ACTIVE DAY Toxic Exposure Screening: The [place]/caregiver was asked if they believe the [place] experienced any toxic exposure(s), such as Airborne Hazards and Open Burn Pit, [place] War related exposures, Agent [place], Radiation, contaminated water at [place] or other such exposures, while serving in the Armed Forces. [place] has no concerns about toxic exposure(s) while serving in the Armed Forces. The [place]/caregiver was informed that we will continue to ask this screening question every 5 years. They can contact their provider/healthcare team if they have concerns about exposures and would like to be screened sooner. Printed information was offered and provided if desired. Diabetic Eye Screening: Patient declined eye exam at this encounter. Already has an appointment set up at [facility] for eyes. Suicide Screen: C-SSRS Screening [place] Suicide Severity Rating Scale (C-SSRS) screener 1. Over the past month, have you wished you were or wished you could go to sleep and not wake up? No 2. Over the past month, have you had any actual thoughts of killing yourself? No 3. Over the past month, have you been thinking about how you might do this? Response not required due to responses to other questions. 4. Over the past month, have you had these thoughts and had some intention of acting on them? Response not required due to responses to other questions. 5. Over the past month, have you started to work out or worked out the details of how to kill yourself? Response not required due to responses to other questions. 6. If yes, at any time in the past month did you intend to carry out this plan? Response not required due to responses to other questions. 7. In your lifetime, have you ever done anything, started to do anything, or prepared to do anything to end your life (for example, collected pills, obtained a gun, gave away valuables, went to the roof but didn't jump)? No 8. If YES, was this within the past 3 months? Response not required due to responses to other questions. Depression Screening: Perform PHQ-2 A PHQ-2 screen was performed. The score was 0 which is a negative screen for depression. Over the past two weeks, how often have you been bothered by the following problems? 1. Little interest or pleasure in doing things Not at all 2. Feeling down, depressed, or hopeless Not at all Alcohol Use Screen (AUDIT-C): Alcohol Screen: SCREEN FOR ALCOHOL (AUDIT-C) An alcohol screening test (AUDIT-C) was negative (score=1). 1. How often did you have a drink containing alcohol in the past year? Monthly or less 2. How many drinks containing alcohol did you have on a typical day when you were drinking in the past year? One or two drinks 3. How often did you have six or more drinks on one occasion in the past year? Never PTSD Screening: PC-PTSD-5 A PTSD screening test (PC-PTSD-5) was negative (score=2). IN THE PAST MONTH, have you ever had any experience that was so frightening, horrible or traumatic. For example: A serious accident or fire a physical or sexual assault or abuse An earthquake or flood A war Seeing someone be killed or seriously injured Having a loved one through homicide or suicide Have you ever experienced this kind of event? YES 1. Had nightmares about the event(s) or thought about the event(s) when you did not want to? NO 2. Tried hard not to think about the event(s) or went out of your way to avoid situations that reminded you of the event(s)? NO 3. Been constantly on guard, watchful, or easily startled? YES 4. [place] numb or detached from people, activities, or your surroundings? YES 5. [place] guilty or unable to stop blaming yourself or others for the event(s) or any problems the event(s) may have caused? NO Nursing Annual Screening: Fall History Screen During the past 12 months, have you had any falls? Patient reports having had 2 or more falls within the past 12 months. MEDICATIONS: Patient is on one of the following medication classes: Antihypertensives, Antidepressants, Antipsychotics, Diuretics, or Controlled substance medication used for pain. FALL RISK ADVICE: Fall Risk Advice provided. Handout entitled Fall Prevention At Home reviewed and given to patient and/or significant other. Skin Screen Patient reports any current pressure ulcers, a history of pressure ulcers, or a wound from a medical/surgery registered nurse or Patient is bed-confined or a wheelchair-user or Patient requires assistance to transfer/change position No, Skin Screen is Negative Home Abuse/Violence Screen Is your home free of abuse and violence? Yes MOVE! Program Screen Body Mass Index (BMI)= 32.4 [place]: No data available [place] Hgb A1C: No data available [place] Hgb A1C: No data available Point of Care Hgb A1C: POC HGB A1C____ Outpatient Nutrition Screen Body Mass Index (BMI)= 32.4 [place]: No data available [place] Hgb A1C: No data available [place] Hgb A1C: No data available Point of Care Hgb A1C: POC HGB A1C____ Is patient's BMI less than 18.5? No Does patient have swallowing, coughing, or chewing problems affecting oral intake? No Has patient experienced unplanned weight loss or gain greater than 10 pounds over the last 2 months? No Is patient's Hgb A1C (Glycosylated Hemoglobin) greater than 9.5? Information not available Is patient receiving Total Parenteral Nutrition (TPN) or Tube Feedings? No Patient Health Education Screen BARRIERS/SPECIAL NEEDS: Physical limitations Hearing limitations Visual limitations PREFERRED STYLE OF LEARNING: No preference stated Client Assistive Service (JANNIE) Screen Does the patient require assistance with outpatient visit? No Tobacco Use Screening: The patient is a former tobacco user. The patient quit fifteen or more years ago. Homelessness/Food Insecurity Screen: In the past 2 months, have you been living in stable housing that you own, rent, or stay in as part of a household? Yes - Living in stable housing. Are you worried or concerned that in the next 2 months you may NOT have stable housing that you own, rent, or stay in as part of a household? No - Not worried about housing near future The [place] reports the following: Within the past 12 months, you worried whether your food would run out before you got money to buy more. Never true Within the past 12 months, the food you bought just didn't last and you didn't have money to get more. Never true Food Insecurity Resources ADV DIR Notification and Screening: ADVANCE DIRECTIVE NOTIFICATION: I was unable to give the patient written notification of the following rights because: Comment: Has ACD ADVANCE DIRECTIVE SCREENING: Does patient have an Advance Directive? The patient has an Advance Directive. Does the patient wish to make any changes or revoke their current Advance Directive? Yes, the patient has an Advance Directive, but it is not in the medical record. was asked to obtain a copy for their medical record. COVID-19 Immunization: Pfizer Monovalent (Comirnaty) Vaccine information reviewed with the patient. The patient denied any prior severe reaction to this vaccine or its components or a severe allergic reaction such as anaphylaxis to any vaccine or to any injectable therapy. The patient gave verbal consent to receive vaccine. Administered: COVID-19 (PFIZER), MRNA, LNP-S, PF, CONOR-SUCROSE, 30 MCG/0.3 ML (AGES 12+ YEARS) Date Administered: Sep 22, 2023 12:30 Series: Series 6 Officer Captain: [employer] Lot: [id number] Exp Date: Dec 08, 2023 ND: [id number] Admin Route/Site: INTRAMUSCULAR/RIGHT DELTOID Dosage: 0.3mL Vaccine Information Statement(s): COVID-19 MRNA VACCINE (12+ YRS) VACCINE VIS Aug 26, 2023 (BENINESE) Order By: Policy Administered By: Abimael Llanos Vaccine administered without complications. The patient was advised to remain in the facility for 15 minutes post vaccination. Tdap Immunization: Administered: TDAP Date Administered: Sep 22, 2023 12:30 Series: Complete Officer Captain: [employer] Lot: [id number] Exp Date: Oct 15, 2025 ND: [id number] Admin Route/Site: INTRAMUSCULAR/LEFT DELTOID Dosage: 0.5mL Vaccine Information Statement(s): TDAP (TETANUS, DIPHTHERIA, PERTUSSIS) VACCINE VIS Jun 13, 2021 (BENINESE) Order By: Policy Administered By: Abimael Llanos Vaccine Information Sheet (VIS) was given to the patient/caregiver, education regarding adverse reactions was discussed, as well as barriers to learning, if any, were acknowledged. Herpes Zoster (Shingles) Vaccine: The patient declines to receive the recommended dose of zoster (shingles) vaccine. Immunization: ZOSTER RECOMBINANT Refusal Reason: PATIENT DECISION Patient refuses all immunization(s) in the ZOSTER group Date Documented: 09/22/23 12:48 /dean/ ABIMAEL LLANOS [employer] Signed: 09/22/2023 12:48 [facility] Sep 22, 2023 12:23 PM PRIMARY CARE NURSI ZAIRA NOTE: LOCAL TITLE: [facility] NURSING PROGRESS NOTE STANDARD TITLE: PRIMARY CARE NURSING NOTE DATE OF NOTE: SEP 22, 2023@12:23 ENTRY DATE: SEP 22, 2023@12:23:06 AUTHOR: ABIMAEL LLANOS EXP COSIGNER: URGENCY: STATUS: COMPLETED [facility] NURSING PROGRESS NOTE Has ADDENDA TYPE OF VISIT: Appointment Check In Type of appointment: In-person appointment REASON FOR VISIT: [facility] ALLERGIES: Patient has answered NKA VITAL SIGNS: Blood Pressure: 171/77 (09/22/2023 12:09) Pulse: 57 (09/22/2023 12:09) Respiration: 16 (09/22/2023 12:09) Temperature: 98.2 F [36.8 C] (09/22/2023 12:09) Weight: 208.7 lb [94.66 kg] (09/22/2023 12:09) Height: 67.323 in [171.0 cm] (09/22/2023 12:09) BMI: 32.4 O2 Sat: 97% (09/22/2023 12:09) Pain: 0 (09/22/2023 12:09) PAIN SCREEN: Patient is not having significant pain that they wish to discuss with their provider today. MEDICATION Active Outpatient Medications (including Supplies): Non-VA ALLOPURINOL 100MG TAB 100MG MOUTH EVERY DAY ACTIVE Non-VA AMLODIPINE BESYLATE 10MG TAB 10MG MOUTH EVERY DAY ACTIVE Non-VA ASPIRIN 81MG EC TAB 81MG MOUTH EVERY DAY ACTIVE Non-VA ATORVASTATIN CALCIUM 40MG TAB 40MG MOUTH EVERY DAY ACTIVE Non-VA BENZONATATE 100MG CAP 100MG MOUTH EVERY 4 HOURS ACTIVE NEEDED Non-VA CALCITRIOL 0.25MCG CAP 0.25MCG MOUTH EVERY DAY ACTIVE NEEDED Non-VA CARVEDILOL 6.25MG TAB 6.25MG MOUTH TWICE A DAY ACTIVE Non-VA EMPAGLIFLOZIN 10MG TAB 10MG MOUTH EVERY DAY ACTIVE Non-VA FINASTERIDE 5MG TAB 5MG MOUTH EVERY DAY ACTIVE Non-VA FISH OIL 1000MG (500MG DHA/EPA) CAP 1000MG MOUTH ACTIVE EVERY DAY Non-VA HYDRALAZINE HCL 50MG TAB 50MG MOUTH THREE TIMES A ACTIVE DAY Non-VA RAMIPRIL 10MG CAP 10MG MOUTH TWICE A DAY ACTIVE Non-VA SODIUM BICARBONATE 650MG TAB 2600MG MOUTH TWICE A ACTIVE DAY Toxic Exposure Screening: The /caregiver was asked if they believe the experienced any toxic exposure(s), such as Airborne Hazards and Open Burn Pit, [place] War related exposures, Agent [place], Radiation, contaminated water at [place] or other such exposures, while serving in the Armed Forces. [place] has no concerns about toxic exposure(s) while serving in the Armed Forces. The /caregiver was informed that we will continue to ask this screening question every 5 years. They can contact their provider/healthcare team if they have concerns about exposures and would like to be screened sooner. Printed information was offered and provided if desired. Diabetic Eye Screening: Patient declined eye exam at this encounter. Already has an appointment set up at [facility] for eyes. Suicide Screen: C-SSRS Screening [place] Suicide Severity Rating Scale (C-SSRS) screener 1. Over the past month, have you wished you were or wished you could go to sleep and not wake up? No 2. Over the past month, have you had any actual thoughts of killing yourself? No 3. Over the past month, have you been thinking about how you might do this? Response not required due to responses to other questions. 4. Over the past month, have you had these thoughts and had some intention of acting on them? Response not required due to responses to other questions. 5. Over the past month, have you started to work out or worked out the details of how to kill yourself? Response not required due to responses to other questions. 6. If yes, at any time in the past month did you intend to carry out this plan? Response not required due to responses to other questions. 7. In your lifetime, have you ever done anything, started to do anything, or prepared to do anything to end your life (for example, collected pills, obtained a gun, gave away valuables, went to the roof but didn't jump)? No 8. If YES, was this within the past 3 months? Response not required due to responses to other questions. Depression Screening: Perform PHQ-2 A PHQ-2 screen was performed. The score was 0 which is a negative screen for depression. Over the past two weeks, how often have you been bothered by the following problems? 1. Little interest or pleasure in doing things Not at all 2. Feeling down, depressed, or hopeless Not at all Alcohol Use Screen (AUDIT-C): Alcohol Screen: SCREEN FOR ALCOHOL (AUDIT-C) An alcohol screening test (AUDIT-C) was negative (score=1). 1. How often did you have a drink containing alcohol in the past year? Monthly or less 2. How many drinks containing alcohol did you have on a typical day when you were drinking in the past year? One or two drinks 3. How often did you have six or more drinks on one occasion in the past year? Never PTSD Screening: PC-PTSD-5 A PTSD screening test (PC-PTSD-5) was negative (score=2). IN THE PAST MONTH, have you ever had any experience that was so frightening, horrible or traumatic. For example: A serious accident or fire a physical or sexual assault or abuse An earthquake or flood A war Seeing someone be killed or seriously injured Having a loved one through homicide or suicide Have you ever experienced this kind of event? YES 1. Had nightmares about the event(s) or thought about the event(s) when you did not want to? NO 2. Tried hard not to think about the event(s) or went out of your way to avoid situations that reminded you of the event(s)? NO 3. Been constantly on guard, watchful, or easily startled? YES 4. [place] numb or detached from people, activities, or your surroundings? YES 5. [place] guilty or unable to stop blaming yourself or others for the event(s) or any problems the event(s) may have caused? NO Nursing Annual Screening: Fall History Screen During the past 12 months, have you had any falls? Patient reports having had 2 or more falls within the past 12 months. MEDICATIONS: Patient is on one of the following medication classes: Antihypertensives, Antidepressants, Antipsychotics, Diuretics, or Controlled substance medication used for pain. FALL RISK ADVICE: Fall Risk Advice provided. Handout entitled Fall Prevention At Home reviewed and given to patient and/or significant other. Skin Screen Patient reports any current pressure ulcers, a history of pressure ulcers, or a wound from a medical/surgery registered nurse or Patient is bed-confined or a wheelchair-user or Patient requires assistance to transfer/change position No, Skin Screen is Negative Home Abuse/Violence Screen Is your home free of abuse and violence? Yes MOVE! Program Screen Body Mass Index (BMI)= 32.4 [place]: No data available [place] Hgb A1C: No data available [place] Hgb A1C: No data available Point of Care Hgb A1C: POC HGB A1C____ Outpatient Nutrition Screen Body Mass Index (BMI)= 32.4 [place]: No data available [place] Hgb A1C: No data available [place] Hgb A1C: No data available Point of Care Hgb A1C: POC HGB A1C____ Is patient's BMI less than 18.5? No Does patient have swallowing, coughing, or chewing problems affecting oral intake? No Has patient experienced unplanned weight loss or gain greater than 10 pounds over the last 2 months? No Is patient's Hgb A1C (Glycosylated Hemoglobin) greater than 9.5? Information not available Is patient receiving Total Parenteral Nutrition (TPN) or Tube Feedings? No Patient Health Education Screen BARRIERS/SPECIAL NEEDS: Physical limitations Hearing limitations Visual limitations PREFERRED STYLE OF LEARNING: No preference stated Client Assistive Service (JANNIE) Screen Does the patient require assistance with outpatient visit? No Tobacco Use Screening: The patient is a former tobacco user. The patient quit fifteen or more years ago. Homelessness/Food Insecurity Screen: In the past 2 months, have you been living in stable housing that you own, rent, or stay in as part of a household? Yes - Living in stable housing. Are you worried or concerned that in the next 2 months you may NOT have stable housing that you own, rent, or stay in as part of a household? No - Not worried about housing near future The reports the following: Within the past 12 months, you worried whether your food would run out before you got money to buy more. Never true Within the past 12 months, the food you bought just didn't last and you didn't have money to get more. Never true Food Insecurity Resources ADV DIR Notification and Screening: ADVANCE DIRECTIVE NOTIFICATION: I was unable to give the patient written notification of the following rights because: Comment: Has ACD ADVANCE DIRECTIVE SCREENING: Does patient have an Advance Directive? The patient has an Advance Directive. Does the patient wish to make any changes or revoke their current Advance Directive? Yes, the patient has an Advance Directive, but it is not in the medical record. [place] was asked to obtain a copy for their medical record. COVID-19 Immunization: Pfizer Monovalent (Comirnaty) Vaccine information reviewed with the patient. The patient denied any prior severe reaction to this vaccine or its components or a severe allergic reaction such as anaphylaxis to any vaccine or to any injectable therapy. The patient gave verbal consent to receive vaccine. Administered: COVID-19 (PFIZER), MRNA, LNP-S, PF, OCNOR-SUCROSE, 30 MCG/0.3 ML (AGES 12+ YEARS) Date Administered: Sep 22, 2023 12:30 Series: Series 6 Officer Captain: [employer] Lot: [id number] Exp Date: Dec 08, 2023 ND: [id number] Admin Route/Site: INTRAMUSCULAR/RIGHT DELTOID Dosage: 0.3mL Vaccine Information Statement(s): COVID-19 MRNA VACCINE (12+ YRS) VACCINE VIS Aug 26, 2023 (BENINESE) Order By: Policy Administered By: Abimael Llanos Vaccine administered without complications. The patient was advised to remain in the facility for 15 minutes post vaccination. Tdap Immunization: Administered: TDAP Date Administered: Sep 22, 2023 12:30 Series: Complete Officer Captain: [employer] Lot: [id number] Exp Date: Oct 15, 2025 NDC: [id number] Admin Route/Site: INTRAMUSCULAR/LEFT DELTOID Dosage: 0.5mL Vaccine Information Statement(s): TDAP (TETANUS, DIPHTHERIA, PERTUSSIS) VACCINE VIS Jun 13, 2021 (BENINESE) Order By: Policy Administered By: Abimael Llanos Vaccine Information Sheet (VIS) was given to the patient/caregiver, education regarding adverse reactions was discussed, as well as barriers to learning, if any, were acknowledged. Herpes Zoster (Shingles) Vaccine: The patient declines to receive the recommended dose of zoster (shingles) vaccine. Immunization: ZOSTER RECOMBINANT Refusal Reason: PATIENT DECISION Patient refuses all immunization(s) in the ZOSTER group Date Documented: 09/22/23 12:48 /dean/ ABIMAEL LLANOS [employer] Signed: 09/22/2023 12:48 09/22/2023 ADDENDUM STATUS: COMPLETED Please update banner to Fausto Pact Tamara /dean/ [facility] Signed: 09/22/2023 14:32 Receipt Acknowledged By: * AWAITING SIGNATURE * MUSTAPAH FIGUEROA NICOLE LYN [facility] Sep 22, 2023 09:56 AM H & P NOTE: LOCAL TITLE: [facility]OC ANNUAL VISIT STANDARD TITLE: H & P NOTE DATE OF NOTE: SEP 22, 2023@09:56 ENTRY DATE: SEP 22, 2023@09:56:36 AUTHOR: YAZMIN HAGER EXP COSIGNER: URGENCY: STATUS: COMPLETED Today's Nurse check-in note reviewed. [place] seen in the clinic today. Followed all current PPE guidelines during the visit. Preferred name: Rebel Patient brought in outside medical records and have been reviewed: In [facility] Co-managed care with a non-VA provider. Non-VA- PCP-[facility] Non-VA specialist: [facility] Last lab done-07/24/2023 GFR 42, creatinine 1.59, troponin 36, hemoglobin 15.4, MCV 96.5, platelets 117 EKG SR with first-degree AV block Chest CT -07/2023- Impressions 1. Lucencies extend through the superior cortical margin of the posterior lateral left seventh and possibly eighth ribs suspicious for nondisplaced fractures. No focal pulmonary contusion or significant pleural effusion. No pneumothorax or pneumomediastinum. 2. Mucous secretions within the dependent trachea. 3. Cholelithiasis. Known [facility] PCP manages all dxs/rxs; gets some meds filled [facility] *[facility] = active Chief complaint: A new patient here to establish care for Wellness and preventive medicine visit. Is comanaged and looking for some home health aide services along with life alert, incontinence supplies and hearing aids through [facility]. History of Present Illness: 87-year-old male seen in the clinic today with current medical history listed below. Son Jamie is with the in the clinic during the visit. He told me that he is looking for home health aide to help him with shower and some light housework and also needs snf for medication management. Recent fall in July 2023-with rib fracture and hospitalization for 7 days. Living now more sedentary lifestyle. Feeling weak in his legs and fear of falling due to age, using walker for long distances and a cane for shorter distances in the house. 3 falls in past 1 year. No falls after July 2023. He has been living with his son and [id number]. Sleeps in recliner. Has outside provider and does not need any medications through [place]. They are also looking for life alert, incontinence supplies for bowel and bladder incontinence, hearing aid and possible cane. Offers no other concerns. Review of Systems: Denies chest pain, shortness of breath, recent significant. weight changes, rash, bowel or bladder changes, new joint pain or swelling, headaches, lightheadedness, vision changes, new numbness or tingling or weakness. Remainder of the ROS is negative, except as above. Past Medical History: Active problems - Computerized Problem List is [...] tremor 12. Family social history - first contact- ISIAH Jama- [phone] - second contact- SonJuliocesar Ayala- [phone] - Tobacco-smoked cigarettes in the past quit in 1959 - Alcohol-none, occasional beer - Illicit drugs-none 13. 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 Closed fracture of multiple ribs - July 2023 fell in the bathroom Family History Heart failure Father Father Breast cancer Mother Mother Diabetes mellitus - adult onset Mother Mother Emphysema Mother Mother Heart failure Mother Mother Service: Service Branch Service # Entered Discharge [employer] [id number] NOV 17, 1966 APRIL 07[birth year] 1980 HONORABLE Allergies: Patient has answered NKA Medication Reconciliation: Education Evaluations *Was medication education provided for NEW medications or CHANGES to medications? (including medication name, dose, route, reason for use, and potential side effects). No new medications or medication changes during this encounter. TERATOGENIC MED & CONTRACEPTION REVIEW (Optional)... === MEDICATION RECONCILIATION === Review Done: The medication list shown below was verified for accuracy and it includes all pending medications/active medications/all medications or discontinued within the last 90 days/all remote medications and non-VA medications. If a given category (i.e. remote meds) is not shown, that means that a patient doesn't have a medication(s) in that category. Allergies listed below were also reviewed/updated for accuracy. Allergies/ADR from [facility] may not display in CPRS. Use JLV MRT5 - Allergies/ADRs FACILITY ALLERGY/ADR -------- [facility] NO KNOWN ALLERGIES [facility] No Known Allergies Active and Recently Outpatient Medications (including Supplies): Start Date Active Non-VA Medications Refills Expiration 1) Non-VA ALLOPURINOL 100MG TAB SiMG ACTIVE MOUTH EVERY DAY 2) Non-VA AMLODIPINE BESYLATE 10MG TAB ACTIVE SiMG MOUTH EVERY DAY 3) Non-VA ASPIRIN 81MG EC TAB SiMG ACTIVE MOUTH EVERY DAY 4) Non-VA ATORVASTATIN CALCIUM 40MG TAB ACTIVE SiMG MOUTH EVERY DAY 5) Non-VA BENZONATATE 100MG CAP SiMG ACTIVE MOUTH EVERY 4 HOURS NEEDED 6) Non-VA CALCITRIOL 0.25MCG CAP Sig: ACTIVE 0.25MCG MOUTH EVERY DAY NEEDED 7) Non-VA CARVEDILOL 6.25MG TAB Sig: ACTIVE 6.25MG MOUTH TWICE A DAY 8) Non-VA EMPAGLIFLOZIN 10MG TAB SiMG ACTIVE MOUTH EVERY DAY 9) Non-VA FINASTERIDE 5MG TAB SiMG ACTIVE MOUTH EVERY DAY 10) Non-VA FISH OIL 1000MG (500MG DHA/EPA) ACTIVE CAP SiMG MOUTH EVERY DAY 11) Non-VA HYDRALAZINE HCL 50MG TAB Sig: ACTIVE 50MG MOUTH THREE TIMES A DAY 12) Non-VA RAMIPRIL 10MG CAP SiMG ACTIVE MOUTH TWICE A DAY 13) Non-VA SODIUM BICARBONATE 650MG TAB ACTIVE SiMG MOUTH TWICE A DAY Physical Exam: Vitals: BP: 146/74 (09/22/2023 12:36) P: 57 (09/22/2023 12:09) R: 16 (09/22/2023 12:09) T: 98.2 F [36.8 C] (09/22/2023 12:09) WT: 208.7 lb [94.66 kg] (09/22/2023 12:09) BMI: 32.4 Pain: 0 (09/22/2023 12:09) O2 Sat: 97% (09/22/2023 12:09) GENERAL: Alert and oriented x 3, No acute distress, Well-nourished, dressed and groomed HEENT: Normocephalic, atraumatic, ear canals clear, TMs normal, OP clear, neck supple without mass, no adenopathy or thyromegaly LUNGS: Clear to auscultation bilaterally, No accessory muscle use no wheezes, rhonchi or rales CV: RRR without murmur, rub or gallop GI: Abdomen non distended, soft, non tender, normal bowel sounds in all quadrants, no palpable mass SKIN: Warm and moist, no rash or erythema MSK: No joint swelling, ambulates with walker EXTREMITIES: No edema, no swelling NEUROLOGIC: No focal neurological deficits, CN II-XII grossly intact, but not individually tested PSYCHIATRIC: Cooperative, Good eye contact,Appropriate mood and affect Assessment/Plan: Wellness/screening visit completed. [place] prefers to continue care with Non VA provider - Non VA provider Manages meds,health maintenance and all preventative screenings. Counseling and education provided today includes proper nutrition and health habits, fall prevention, and for those labs and consults ordered today #Annual Vested exam - meds: reviewed, updated - the ACTIVE PROBLEM LIST above is considered to be the Past Medical History for the purposes of this note; it was reviewed during the visit and no changes unless otherwise noted above #Health Maintenance/Wellness As per non-VA provider-up to date Active problems - Computerized Problem List is the source for the followin. History of fall - Recent fall 07/19/2023-rib fracture followed by hospitalization -Referred him to PT for new cane and walker 2. History of cerebrovascular accident -S/p stroke, bowel and bladder incontinence -Ordered deep and brief XL, using 1-2 drinks per day -print room worker contact information given for life alert -Skilled RN and nonskilled RN consult placed for home health and medication management -Hearing center information given for new hearing aids PACT RN will work on skilled and nonskilled RN consults and incontinence supply order Total time personally spent by the provider on encounter was __30__ minutes. If all is well we can see this comanaged back in one to two years. understands and agrees to the plan. Follow up as discussed. Sooner if questions or concerns. Disclaimer: This note consists of symbols derived from keyboarding, dictation and/or voice recognition software. As a result, there may be errors in the script that have gone undetected. Please consider this when interpreting information found in this chart. /dean/ YAZMIN HAGER DNP,LOG CHIPPER,ARDMS Signed: 09/23/2023 13:43 Receipt Acknowledged By: 09/24/2023 14:41 /dean/ ROSA PULLIAM RN, CWOCN PACT YAZMIN ROJO [employer]
--- OUTSIDE RECORDS SUMMARY | 2024-07-28 03:54 | XMS_ITS | Encounter Summary ---
Author Name Department of [facility] ([place]) Organization [facility] of [facility] ([place]) Address [address] [place] [id number] Care Team Providers Care Animal Care Assistant Name Role Phone YAZMIN HAGER Primary Care [...] PART A Dec 09, 2001 PART A [id number] [phone] KACEY KIRILL Calero PATIENT MEDICARE (WN) MEDICARE () PART B Dec 09, 2001 PART B [id number] [phone] KACEY KIRILL Calero PATIENT MEDICARE (WNR) MEDICARE () PART A Dec 09, 2001 PART A [id number] KACEY KIRILL Calero PATIENT MEDICARE (WN) MEDICARE (M) PART B Dec 09, 2001 PART B [id number] NOELLEKIRILL SHETH PATIENT FOR LIFE [facility] RE FOR LIFE Feb 05, 1999 WNR [id number] KIRILL JAMISON MICHELLE -FO R-LIFE TRICA RE FOR LIFE WNR Apr 11, 2015 FOR LIFE [id number] KIRILL JAMISON PATIENT Selected Encounter This section includes the information on record at [place] for the Encounter. Date/Time Encounter Type Encounter Description Reason Pro vider Source Jun 28, 2024 08:12 AM Outpatient Encounter PRIMARY CARE/MEDICINE IHE Encounter Template Text not used by [place] Advance Directives: All historical and current Section Date Range: From patient's date of to the date document was created. This section includes ALL of a patient's completed or amended [place] Advance and Rescinded Directives. The entries below indicate that a directive exists for the patient, but an actual copy is not included with this document. The data comes from all [place] facilities. Date Advance Directives Provider Source Jul 16, 2017 ADVANCE DIRECTIVE LOLI WONG JR [facility] Jul 16, 2017 ADVANCE DIRECTIVE DISCUSSION FABIANA KISER [facility] Jan 14, 2017 ADVANCE DIRECTIVE DISCUSSION [facility]NA [facility] Jan 15, 2016 ADVANCE DIRECTIVE DISCUSSION F[facility]NA KIS[facility] [place] [facility] Encounter Notes: All associated encounter notes This section contains the clinical notes associated to the Encounter. Date/Time Encounter Note(s) Provider Source Jun 28, 2024 08:12 AM MEDICATION MGT NOT E: LOCAL TITLE: MEDICATION RECONCILIATION NOTE STANDARD TITLE: MEDICATION MGT NOTE DATE OF NOTE: JUN 28, 2024@08:12 ENTRY DATE: JUN 28, 2024@08:13:08 AUTHOR: ABIMAEL THOMPSON COSIGNER: URGENCY: STATUS: COMPLETED MEDICATION RECONCILIATION Certification Period 04/08/24 to 06/06/24 for [facility]. Active Outpatient Medications (excluding Supplies): Outpatient Medications Status 1) ACETAMINOPHEN 325MG TAB TAKE ONE TABLET BY MOUTH ACTIVE EVERY 8 HOURS NEEDED FOR PAIN Non-VA Medications Status 1) Non-VA ALLOPURINOL 100MG TAB 100MG MOUTH [...] 5MG MOUTH EVERY DAY ACTIVE 10) Non-VA HYDRALAZINE HCL 50MG TAB 50MG MOUTH THREE ACTIVE TIMES A DAY 11) Non-VA RAMIPRIL 10MG CAP 10MG MOUTH TWICE A DAY ACTIVE 12) Non-VA SODIUM BICARBONATE 650MG TAB 1300MG MOUTH ACTIVE TWICE A DAY 13) Non-VA ZZFISH OIL 1000MG (500MG DHA/EPA) CAP 1000MG ACTIVE MOUTH EVERY DAY 14 Total Medications /es/ ABIMAEL THOMPSON LPN Signed: 06/28/2024 08:13 ABIMAEL THOMPSON [facility]
== END 2024-07-13 08:04 | disposition home or self-care (01) ==
LOC: AMB 07-28 03:50
PROVIDERS: Visit Provider Emergency Medicine
DX: R53.1 Weakness (principal)
CPT/HCPCS: A0425; A0427

== ENCOUNTER 2024-12-24 01:08 | Outpatient (CLI) | payer MEDICARE, OTHER, SELFPAY | END 2024-12-24 01:09 | disposition home or self-care (01) | LOC: AMB 12-25 05:52 | PROVIDERS: Visit Provider Family Medicine | DX: R53.1 Weakness (principal) | CPT/HCPCS: A0998 ==

== ENCOUNTER 2024-12-24 15:44 | Outpatient (CLI) | payer MEDICARE, OTHER, SELFPAY | END 2024-12-24 15:45 | disposition home or self-care (01) | LOC: AMB 12-25 07:01 | PROVIDERS: Visit Provider Emergency Medicine | DX: R53.1 Weakness (principal); R06.09 Other forms of dyspnea | CPT/HCPCS: A0425; A0427 ==